=== PATIENT | male | born 1960 | race Caucasian/White ===

== ENCOUNTER 2018-08-18 10:52 | Observation (INO) | payer MEDICAID, SELFPAY ==
[2018-08-18] VITALS (10 sets, daily range): BP systolic 118–148; BP diastolic 51–91; PULSE 72–99; RESP 16–25; TEMP 36.3–37.5; O2SAT 95–100
--- NOTE | 2018-08-18 10:55 | DI.CT_ITS ---
SYMPTOMS/DIAGNOSIS: RIGHT LOWER QUADRANT PAIN, HERNIA, FEELS INCARCERATED, ? STRANGULATION CT OF THE ABDOMEN AND PELVIS: Comparison is made with November,. Images were performed from the lung bases through the ischial tuberosities after IV and oral contrast. There is a right inguinal hernia containing a loop of distal small bowel, which appears obstructing. The small bowel distal to the hernia is decompressed. More proximal loops are dilated. There is no pneumatosis. There are diverticula in the colon, but no evidence of diverticulitis. The appendix appears normal. The lung bases show dependent changes. The liver, spleen, adrenals and pancreas are unremarkable. There is thickening of the gallbladder wall, which appears unchanged when compared with the previous exam. There is no abnormal gallbladder distention or biliary dilatation. There are small bilateral renal cysts. The urinary bladder is unremarkable. The prostate is enlarged. IMPRESSION: Right inguinal hernia containing a loop of small bowel causing obstruction. There is evidence of a previous inguinal hernia repair.
[2018-08-18] MEDS: Lactated Ringers 1,000 ML 1000 ML IV (11:11)
[2018-08-18] MEDS: Ondansetron 4 MG/2 ML VIAL IVP (11:11)
[2018-08-18] MEDS: HYDROmorphone 2 MG/ML VIAL 1 MG IVP (11:11)
[2018-08-18 11:22] LABS: Abs Immature Grans 0.02 k/cumm (0.0-0.09); Absolute Eosinophil Count 0.04 k/cumm (0.0-0.7); Absolute Lymphocyte Count 0.81 k/cumm (1.2-3.4); Basophils % 0.2; Eosinophils % 0.3; HCT 45.3 % (40.0-50.0); HGB 15.4 g/dL (13.5-17.5); Immature Grans % 0.2; Lymphocytes % 6.1; Mean Corpuscular Hemoglobin 29.4 pg (27.0-33.0); Mean Corpuscular Volume 86.6 fL (80-95); Mean Platelet Volume 9.5 fL (8.0-11.0); Monocytes % 5.3; Neutrophils % 87.9; Platelet Count 286 x1000/uL (130-400); RBC 5.23 m/cumm (4.50-6.00); RBC Distribution Width 13.6 % (11.8-14.1); White Blood Cell Count 13.33 k/cumm (4.4-10.8)
[2018-08-18 11:25] LABS: Absolute Basophil Count 0.03 k/cumm (0.0-0.2); Absolute Monocyte Count 0.71 k/cumm (0.11-0.7); Absolute Neutrophil Count 11.72 k/cumm (1.2-6.7)
[2018-08-18 11:36] LABS: ALT 28 U/L (12-78); AST 27 U/L (15-37); Albumin 4.1 g/dL (3.4-5.0); Alkaline Phosphatase 81 U/L (46-116); Anion Gap 12.2 mmol/L (3-11); BUN 19 mg/dL (7-18); Bilirubin, Total 0.7 mg/dL (0.2-1.0); CO2 22.8 mmol/L (21.0-32.0); Calcium 8.9 mg/dL (8.5-10.1); Chloride 103 mmol/L (98-107); Glucose 136 mg/dL (70-100); Potassium 3.7 mmol/L (3.5-5.1); Sodium 138 mmol/L (136-145); Total Protein 7.8 g/dL (6.4-8.2)
[2018-08-18] MEDS: Omnipaque 350 MG/ML 100 ML BTL IJ (12:41)
--- NOTE | 2018-08-18 12:51 | ED.GENADUL_ITS ---
Discharge Plan Disposition Patient Disposition: [facility] INPATIENT Condition: Good Discharge Details Chief Complaint: Abd Prob Clinical Impression: Recurrent inguinal hernia of right side with obstruction Reason For Visit: INCARCERATED RECURRENT RIGHT INGUINAL HERNIA Admit Date/Time: 08/18/18 16:14 Admit Provider: John Pope Attending Provider: John Pope Primary Care Provider: None,None ED Provider: Demian Sanchez Discharge Instructions Activity:: see instructions Equipment/Supplies:: No Equipment Needed Diet:: Normal Diet Discharge Orders Discharge Orders: Discharge Order (Routine); Ordered 08/19/18 Ordered By: John Pope Discharge Data Discharge Date/Time-TO BE ENTERED AT DEPARTURE: 08/18/18 14:23 Medical Decision Making This is a pleasant 58-year-old male with past medical history of a right inguinal surgery with hernia repair with mesh. This was performed by Dr. Apodaca a few years ago. Patient states that today he was out chopping wood when he suddenly noticed a bulge and pain in his right groin where he had a previous surgery. Physical exam is concerning for an incarcerated hernia. We did get a CT scan to evaluate for strangulation. I did just get a call from the radiologist and there is concern for certainly an obstructed hernia where he had the surgical correction with mesh. We will contact surgery Dr. Apodaca for further evaluation. CT scan shows evidence of incarcerated hernia with concern for obstruction. Dr. Love mentions no other acute process on CT scan. Dr. Apodaca has come and evaluated the patient. He will bring the patient directly to the OR for open hernia reduction. I have extensively reviewed the treatment plan with the patient. I have addressed all patient concerns at this time. I have also discussed the plan with the admitting physician and they agree with the current assessment and plan and have agreed to assume responsibility for the patient. All parties demonstrate verbal understanding and agreement with our assessment and plan at this time. CT OF THE ABDOMEN AND PELVIS: Comparison is made with November,. Images were performed from the lung bases through the ischial tuberosities after IV and oral contrast. There is a right inguinal hernia containing a loop of distal small bowel, which appears obstructing. The small bowel distal to the hernia is decompressed. More proximal loops are dilated. There is no pneumatosis. There are diverticula in the colon, but no evidence of diverticulitis. The appendix appears normal. The lung bases show dependent changes. The liver, spleen, adrenals and pancreas are unremarkable. There is thickening of the gallbladder wall, which appears unchanged when compared with the previous exam. There is no abnormal gallbladder distention or biliary dilatation. There are small bilateral renal cysts. The urinary bladder is unremarkable. The prostate is enlarged. IMPRESSION: Right inguinal hernia containing a loop of small bowel causing obstruction. There is evidence of a previous inguinal hernia repair. HPI General Date/Time Provider Initiated Documentation: 08/18/18 10:55 . HPI Narrative: This is a pleasant 58-year-old male who presents today for evaluation of right groin pain. Patient has a history of a right-sided inguinal hernia repair with mesh by Dr. Apodaca greater than 2-3 years ago. Today he was out chopping wood and noticed some mild pain in that area. And then later today while doing less aggressive forms of activity he noted a sudden bulge in his right groin. It was painful, and he was unable to reduce it. He came to the ER for further evaluation after roughly 1 hour with the hernia being out. He denies any nausea, vomiting or diarrhea. He denies any chest pain, shortness of breath, numbness, tingling or weakness. He denies any dysuria, hematuria. He states that his symptoms feel similar to when he had his last hernia that was surgically repaired however he used to be able to push it and at this time he cannot. She denies any other modifying or relieving factors. He is presenting via EMS. Patient denies any pertinent family history, IV or illicit drug use. Related Data Home Medications Medication Instructions Recorded Confirmed acetaminophen [Tylenol] 650 mg PO Q4H PRN PRN #0 tab 08/19/18 ibuprofen 400 mg PO Q6H PRN PRN #0 tab 08/19/18 Previous Rx's Medication Instructions Recorded acetaminophen [Tylenol] 650 mg PO Q4H PRN PRN #0 tab 08/19/18 ibuprofen 400 mg PO Q6H PRN PRN #0 tab 08/19/18 Allergies Allergy/AdvReac Type Severity Reaction Status Date / Time No Known Allergies Allergy Unverified 08/18/18 11:17 General Stated Complaint: Abd Prob LENNOX: 3 Review of Systems Review of Systems All systems reviewed & are unremarkable except as noted in HPI and below PFSH Medical History Anxiety (Chronic) Surgical History History of inguinal hernia repair (Acute) Arthroplasty of knee Social History Smoking/Tobacco Use Status: Former Tobacco Use alcohol intake: never substance use type: marijuana Exam Narrative Exam Narrative: 1.Const: Well-nourished, Well-developed, appearing stated age 2.Eyes: PERRL, no conjunctival injection, and symmetrical lids. 3.ENT: Atraumatic external nose and ears. Moist MM. Neck: Symmetric, trachea midline, No thyromegaly. 4.CVS: +S1/S2, No murmurs or gallops. Peripheral pulses 2+ and equal in all extremities. Brisk capillary refill in all extremities. 5.RESP: Unlabored respiratory effort. Clear to auscultation bilaterally. No wheezes rales or rhonchi 6.GI: Soft, Nondistended, No hepatosplenomegaly. No guarding or rebound. Notable tenderness in the right groin, notable bulge that I cannot reduce. The bulge is firm, tender, and hard. No evidence of testicular tenderness, normal cremasteric reflex bilaterally. No penile tenderness. Bowel sounds are reduced. 7.MSK: Normocephalic/Atraumatic, Extremities w/o deformity or ttp No cyanosis or clubbing, Normal movement of all extremities 8.Skin: Warm, Dry. No rashes or lesions. 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 Sensation grossly intact, no focal neurologic deficits. 10.Psych: (AAO) x3. Appropriate mood and affect Course Vital Signs Temperature 37 C 08/18/18 10:50 Pulse 76 08/18/18 10:50 Respiratory Rate 16 08/18/18 10:50 Blood Pressure 124/87 08/18/18 10:50 Pulse Oximetry 98 08/18/18 10:50 Temperature 37 C 08/18/18 10:50 Temperature Source Temporal Artery Scan 08/18/18 10:50 Pulse 76 08/18/18 10:50 Respiratory Rate 16 08/18/18 10:50 Respiratory Effort 08/18/18 11:16 Blood Pressure 124/87 08/18/18 10:50 Blood Pressure Position Sitting 08/18/18 10:50 Pulse Oximetry 98 08/18/18 10:50 Oxygen Delivery Method Room Air 08/18/18 10:50 Oxygen Flow Rate 0 08/18/18 10:50 Pain Level 4 08/18/18 10:50 Lab/Test Results Lab/Test Results: Laboratory Tests Range/Units 08/18/18 08/18/18 11:15 11:15 WBC (4.4-10.8) k/cumm 13.33 H RBC (4.50-6.00) m/cumm 5.23 Hgb (13.5-17.5) g/dL 15.4 Hct (40.0-50.0) % 45.3 MCV (80-95) fL 86.6 MCH (27.0-33.0) pg 29.4 MCHC (32.0-36.0) g/dL 34.0 RDW (11.8-14.1) % 13.6 Plt Count (130-400) x1000/uL 286 MPV (8.0-11.0) fL 9.5 Immature Gran % 0.2 Neutrophils % 87.9 Lymphocytes % 6.1 Monocytes % 5.3 Eosinophils % 0.3 Basophils % 0.2 Absolute Neutrophils (1.2-6.7) k/cumm 11.72 H Absolute Lymphocytes (1.2-3.4) k/cumm 0.81 L Absolute Monocytes (0.11-0.7) k/cumm 0.71 H Absolute Eosinophils (0.0-0.7) k/cumm 0.04 Absolute Basophils (0.0-0.2) k/cumm 0.03 Sodium (136-145) mmol/L 138 Potassium (3.5-5.1) mmol/L 3.7 Chloride (98-107) mmol/L 103 Carbon Dioxide (21.0-32.0) mmol/L 22.8 Anion Gap (3-11) mmol/L 12.2 H BUN (7-18) mg/dL 19 H Creatinine (0.70-1.30) mg/dL 1.10 Estimated GFR/1.73 m2 (mL/min/1.73m2) >= 60.00 Glucose (70-100) mg/dL 136 H Calcium (8.5-10.1) mg/dL 8.9 Total Bilirubin (0.2-1.0) mg/dL 0.7 AST (15-37) U/L 27 ALT (12-78) U/L 28 Alkaline Phosphatase (46-116) U/L 81 Total Protein (6.4-8.2) g/dL 7.8 Albumin (3.4-5.0) g/dL 4.1
--- NOTE | 2018-08-18 14:25 | HPE_ITS ---
Date of service: 08/18/18 Time of Service: 14:22 Assessment and Plan (1) Recurrent inguinal hernia of right side with obstruction: Current visit: Yes Status: Acute Recommended open repair of recurrent right inguinal hernia repair. I discussed the risks of the procedure with Mr. Peña, and reviewed the procedure with him. I did discuss the possibility of bowel resection. All his questions were answered to his satisfaction. No promises or guarantees were made, order given. Consent was obtained to proceed with open right inguinal hernia repair. History of Present Illness Chief Complaint: Incarcerated Recurrent Right inguinal Hernia Narrative: 58-year-old gentleman presenting to the emergency room less than 24 hours of fairly sudden onset right lower quadrant pain with associated bulge. He was cutting wood this morning when onset of pain in the bulge. He has since developed associated nausea. He presented to the emergency room with pain subsequently found to have a slightly elevated white count and CT confirmed recurrent right inguinal hernia that is incarcerated. He was unable to reduce this at his home and it is not been able to reduce to the emergency room. Surgeries been consulted to evaluate. Review of Systems Review of Systems All systems reviewed & are unremarkable except as noted in HPI and below Constitutional Reports anorexia, Denies chills, Denies fatigue, Denies fever(s), Denies headache(s), Denies lethargy and Reports malaise Eyes Reports system reviewed and no additional complaints, except as docu and Denies loss of vision ENT Reports system reviewed and no additional complaints, except as docu, Denies vertigo, Denies dizziness and Denies headache(s) Cardiovascular Denies chest pain, Denies chest pain at rest, Denies irregular heart rhythm, Denies radiating jaw, neck or arm pain and Denies dyspnea on exertion Respiratory Denies cough, Denies pain with cough and Denies dyspnea on exertion Gastrointestinal Denies change in bowel habits and Denies heartburn Musculoskeletal Denies back pain, Denies myalgias, Denies joint swelling, Denies limited range of motion and Denies muscle weakness Neurologic Denies confusion, Denies vertigo, Denies dizziness, Denies headache(s), Denies focal weakness, Denies loss of vision and Denies seizure-like activity Psychiatric Denies abnormal sleep pattern, Reports anxiety, Denies confusion, Denies difficulty concentrating and Denies irritability Endocrine Denies fatigue Hematologic/Lymphatic Denies easy bleeding and Denies easy bruising [facility] Medical History Anxiety (Chronic) Surgical History Arthroplasty of knee Social History Smoking/Tobacco Use Status: Former Tobacco Use alcohol intake: never substance use type: marijuana Meds Allergies Allergy/AdvReac Type Severity Reaction Status Date / Time No Known Allergies Allergy Unverified 08/18/18 11:17 Exam Const General: cooperative, well developed, in distress mild and disheveled Nutritional Appearance: average body habitus and well nourished Orientation: alert [facility] Head: normal to inspection, normocephalic and atraumatic Ears: hearing grossly normal bilaterally General nose exam: external nose normal Face and sinus: normal facial exam Mouth: oral mucosae normal Eyes General: appearance normal, both eyes and all related structures Periorbital: periorbital findings normal Sclera: sclerae normal Pupils: PERRL EOM: EOM intact bilaterally Neck Neck: normal visual inspection Chest Chest: normal inspection of the chest Resp Effort & Inspection: normal respiratory effort and respiratory effort not decreased Auscultation: clear to auscultation bilaterally Cardio Jugular venous pressure: no JVD Rate: regular rate Heart Sounds: S1 normal and S2 normal GI Inspection: normal to inspection Palpation: soft, hernia indirect inguinal on the right, mass (Bulge in Right groin non reducible.) and tender in the RLQ; with no rebound tenderness Rectal Exam: deferred Skin General skin exam: no rashes or lesions noted Rashes: no rashes Neuro General: moves all extremities, no focal motor deficits and CN's II-XI intact bilaterally Extrem General: normal capillary refill and no clubbing, cyanosis or edema Psych Appearance: grossly normal Mental Status: mental status grossly normal Affect: normal affect Judgment: judgment good Results Imaging Abdomen CT scan report/results: image reviewed CT scan - pelvis: image reviewed Imaging Studies: CT:CT abdomen & pelvis w SYMPTOMS/DIAGNOSIS: RIGHT LOWER QUADRANT PAIN, HERNIA, FEELS INCARCERATED, ? STRANGULATION CT OF THE ABDOMEN AND PELVIS: Comparison is made with November,. Images were performed from the lung bases through the ischial tuberosities after IV and oral contrast. There is a right inguinal hernia containing a loop of distal small bowel, which appears obstructing. The small bowel distal to the hernia is decompressed. More proximal loops are dilated. There is no pneumatosis. There are diverticula in the colon, but no evidence of diverticulitis. The appendix appears normal. The lung bases show dependent changes. The liver, spleen, adrenals and pancreas are unremarkable. There is thickening of the gallbladder wall, which appears unchanged when compared with the previous exam. There is no abnormal gallb ladder distention or biliary dilatation. There are small bilateral renal cysts. The urinary bladder is unremarkable. The prostate is enlarged. IMPRESSION: Right inguinal hernia containing a loop of small bowel causing obstruction. There is evidence of a previous inguinal hernia repair. Labs : 08/18/18 11:15 08/18/18 11:15 Laboratory Results - last 24 hr 08/18/18 08/18/18 11:15 11:15 WBC 13.33 H RBC 5.23 Hgb 15.4 Hct 45.3 MCV 86.6 MCH 29.4 MCHC 34.0 RDW 13.6 Plt Count 286 MPV 9.5 Immature Gran % 0.2 Neutrophils % 87.9 Lymphocytes % 6.1 Monocytes % 5.3 Eosinophils % 0.3 Basophils % 0.2 Absolute Neutrophils 11.72 H Absolute Lymphocytes 0.81 L Absolute Monocytes 0.71 H Absolute Eosinophils 0.04 Absolute Basophils 0.03 Sodium 138 Potassium 3.7 Chloride 103 Carbon Dioxide 22.8 Anion Gap 12.2 H BUN 19 H Creatinine 1.10 Estimated GFR/1.73 m2 >= 60.00 Glucose 136 H Calcium 8.9 Total Bilirubin 0.7 AST 27 ALT 28 Alkaline Phosphatase 81 Total Protein 7.8 Albumin 4.1 Last Vital Signs Temp 37 C 08/18/18 10:50 Pulse 76 08/18/18 10:50 Resp 16 08/18/18 10:50 BP 124/87 08/18/18 10:50 Pulse Ox 98 08/18/18 10:50
[2018-08-18] MEDS: Lactated Ringers 1,000 ML 30 ML IV (14:29)
[2018-08-18] MEDS: Lidocaine 1% Multi-Dose 50 ML VIAL (14:54)
--- NOTE | 2018-08-18 16:22 | W.PM.OP ---
Date of service: 08/18/18 Time of Service: 14:30 Operative Note DATE OF PROCEDURE: 08/18/18 PRE-OP DIAGNOSIS: Recurrent right inguinal hernia with obstruction POST-OP DIAGNOSIS: other (Recurrent right indirect inguinal hernia with obstruction) PROCEDURE: Open repair recurrent right inguinal hernia with mesh SURGEON: John Pope INTERVENTIONAL TECH: Judy Heller ANESTHESIA: GETA (Mali Bai CRNA; ASA 2E Mallampati class II) and local (1% lidocaine with epinephrine and 0.25% Marcaine) ESTIMATED BLOOD LOSS: 25 PATHOLOGY: none sent COMPLICATIONS: None Patient was transported to: PACU Patient's condition: stable Implants: [employer] Anatomic Right Progrip Mesh Lot #[id number] Indications: 58-year-old male presented to the emergency room less than 24 hours of sudden onset right groin pain. Pain was associated with a right groin bulge that was firm, red, and nonreducible. He had had a right inguinal hernia repaired 7 years prior, and he had no issues since then, until recently started to feel discomfort with lifting heavy objects. Since his presentation to the emergency room started developing increasing pain and nausea but no vomiting. Workup in the emergency room subsequently confirmed incarcerated recurrent right inguinal hernia by CT, which confirmed physical findings. Surgery was contacted for intervention. Findings: Upon exploring the right inguinal canal and freeing up adhesions to the old mesh that had been placed, and indirect inguinal hernia was identified containing a small hernia sac which was subsequently reduced and in the floor the inguinal canal repaired with mesh creating a new internal ring. Procedure Description: The patient was brought to the operating room. A time-out was completed verifying correct patient , procedure, site , allergies, medications, positioning, implants, and fire risk, prior to beginning the procedure. General anesthesia was induced. The right groin was prepped with chloraprep, and draped in the standard sterile fashion. At induction the incarcerated hernia reduced without physical interventions. The pubic tubercle, and anterior superior iliac spine (ASIS) were marked. A skin incision was marked starting just laterally to the pubic tubercle in a linear oblique fashion toward the ASIS. A field block was produced by injecting local along the proposed skin incision. Additional local anesthesia was injected during the procedure under the external oblique aponeurosis, just medial to the ASIS, to block the ilioinguinal nerve. Addition local was injected as needed during the case. I began by incising the previously marked incision line with a scalpel. The incision was deepened though Corinne's and Camper's fascia with electocautery down until the aponeurosis of the external oblique was encountered. This was cleaned and the external ring exposed. Hemostasis was obtained in the wound with cautery. A stab incision was made in the midportion of the external oblique aponeurosis in the parallel to the fibers. Flaps of the external oblique were developed cephalad, and inferiorly. The cord was identified, gently dissected at the pubic tubercle, and encircled with a jenny drain, The cord was then explored, the vas deferens, and testicular vesicles were protected small indirect hernia sac was identified and reduced back into the abdomen. Adhesions to the mesh placed in the prior hernia repair were taken down with sharp and blunt dissection so that the appropriate fitch were exposed for placement of a new mesh to repair the floor the inguinal canal. The femoral canal was palpated and no hernia was identified. As the incarceration had reduced at the time of induction of anesthesia I did not visualize any bowel during the case. I then placed a mesh to re-enforce the floor of the inguinal canal, and create a new internal ring. The floor of the inguinal canal was cleaned medially over the pubic tubercle, cephalad over the conjoint tendon, laterally over the aponeurosis of the internal oblique, and inferiorly the inguinal ligament. A mesh was then laid in the floor of the canal with the mesh overlying the pubic tubercle medially, conjoint tendon cephalad, internal oblique aponeurosis laterally, and shelving edge of inguinal ligament inferiorly. The mesh was then inspected for apposition to the tissue, and pressed into place. The tip of a Debakey forceps easily passed through the new internal ring next the cord structures. The wound was then irrigated. Hemostasis again checked, and jenny drain removed. I closed the wound in layers, with 2-0 vicryl for the external oblique in a running fashion, 3-0 vicryl to approximate Corinne's fascia, and the skin was closed with 4-0 vicryl with a running subcuticular fashion. A dressing was applied. The count was reported correct times two. No apparent complications during the case. The patient was brought to the PACU in good condition.
[2018-08-18] MEDS: Albuterol/Ipratropium 3 ML UPD VIAL (16:25)
[2018-08-18] MEDS: Lactated Ringers 1,000 ML 125 ML IV (16:25)
--- NOTE | 2018-08-18 16:34 | ROE_ITS ---
Date of service: 08/18/18 Time of Service: 14:30 Operative Note DATE OF PROCEDURE: 08/18/18 PRE-OP DIAGNOSIS: Recurrent right inguinal hernia with obstruction POST-OP DIAGNOSIS: other (Recurrent right indirect inguinal hernia with obstruction) PROCEDURE: Open repair recurrent right inguinal hernia with mesh SURGEON: John Pope SUPERVISOR STAVE FINISHING: Judy Heller ANESTHESIA: GETA (Mali Bai CRNA; ASA 2E Mallampati class II) and local (1% lidocaine with epinephrine and 0.25% Marcaine) ESTIMATED BLOOD LOSS: 25 PATHOLOGY: none sent COMPLICATIONS: None Patient was transported to: PACU Patient's condition: stable Implants: [employer]ien Anatomic Right Progrip Mesh Lot #[id number] Indications: 58-year-old male presented to the emergency room less than 24 hours of sudden onset right groin pain. Pain was associated with a right groin bulge that was firm, red, and nonreducible. He had had a right inguinal hernia repaired 7 year s prior, and he had no issues since then, until recently started to feel discomfort with lifting heavy objects. Since his presentation to the emergency room started developing increasing pain and nausea but no vomiting. Workup in the emergency room subsequently confirmed incarcerated recurrent right inguinal hernia by CT, which confirmed physical findings. Surgery was contacted for intervention. Findings: Upon exploring the right inguinal canal and freeing up adhesions to the old mesh that had been placed, and indirect inguinal hernia was identified containing a small hernia sac which was subsequently reduced and in the floor the inguinal canal repaired with mesh creating a new internal ring. Procedure Description: The patient was brought to the operating room. A time-out was completed verifying correct patient , procedure, site , allergies, medications, positioning, implants, and fire risk, prior to beginning the procedure. General anesthesia was induced. The right groin was prepped with chloraprep, and draped in the standard sterile fashion. At induction the incarcerated hernia reduced without physical interventions. The pubic tubercle, and anterior superior iliac spine (ASIS) were marked. A skin incision was marked starting just laterally to the pubic tubercle in a linear oblique fashion toward the ASIS. A field block was produced by injecting local along the proposed skin incision. Additional local anesthesia was injected during the procedure under the external oblique aponeurosis, just medial to the ASIS, to block the ilioinguinal nerve. Addition local was injected as needed during the case. I began by incising the previously marked incision line with a scalpel. The incision was deepened though Corinne's and Camper's fascia with electocautery down until the aponeurosis of the external oblique was encountered. This was cleaned and the external ring exposed. Hemostasis was obtained in the wound with cautery. A stab incision was made in the midportion of the external oblique aponeurosis in the parallel to the fibers. Flaps of the external oblique were developed cephalad, and inferiorly. The cord was identified, gently dissected at the pubic tubercle, and encircled with a jenny drain, The cord was then explored, the vas deferens, and testicular vesicles were protected small indirect hernia sac was identified and reduced back into the abdomen. Adhesions to the mesh placed in the prior hernia repair were taken down with sharp and blunt dissection so that the appropriate fitch were exposed for placement of a new mesh to repair the floor the inguinal canal. The femoral canal was palpated and no hernia was identified. As the incarceration had reduced at the time of induction of anesthesia I did not visualize any bowel during the case. I then placed a mesh to re-enforce the floor of the inguinal canal, and create a new internal ring. The floor of the inguinal canal was cleaned medially over the pubic tubercle, cephalad over the conjoint tendon, laterally over the aponeurosis of the internal oblique, and inferiorly the inguinal ligament. A mesh was then laid in the floor of the canal with the mesh overlying the pubic tubercle medially, conjoint tendon cephalad, internal oblique aponeurosis laterally, and shelving edge of inguinal ligament inferiorly. The mesh was then inspected for apposition to the tissue, and pressed into place. The tip of a Debakey forceps easily passed through the new internal ring next the cord struct ures. The wound was then irrigated. Hemostasis again checked, and jenny drain removed. I closed the wound in layers, with 2-0 vicryl for the external oblique in a running fashion, 3-0 vicryl to approximate Corinne's fascia, and the skin was closed with 4-0 vicryl with a running subcuticular fashion. A dressing was applied. The count was reported correct times two. No apparent complications during the case. The patient was brought to the PACU in good condition.
[2018-08-18] MEDS: Pantoprazole 40 MG VIAL IVP (17:54)
[2018-08-18] MEDS: Normal Saline Flush 10 ML SYR IVP ×2 (17:54→22:48)
[2018-08-18] MEDS: ACETAMINOPHEN 1,000 MG/100 ML BTL 400 MG IVPB ×2 (17:55→23:45)
[2018-08-18] MEDS: Ketorolac 15 MG/ML VIAL IVP (22:47)
[2018-08-19 00:11] VITALS: BP 129/75; PULSE 64; RESP 18; TEMP 37; O2SAT 98
[2018-08-19] MEDS: Lactated Ringers 1,000 ML 125 ML IV (02:12)
[2018-08-19 03:35] VITALS: BP 108/68; PULSE 60; RESP 18; TEMP 36.8; O2SAT 98
[2018-08-19] MEDS: Ketorolac 15 MG/ML VIAL IVP (04:55)
[2018-08-19 07:30] VITALS: BP 120/80; PULSE 74; RESP 18; TEMP 37.1; O2SAT 98
--- NOTE | 2018-08-19 08:39 | PDOC.CMIN ---
- If Service Date Differs Date of service: 08/19/18 Time of Service: 08:39 Care Management Initial Assess REASON FOR HOSPITALIZATION:: Incarcerated Recurrent (R) inguinal hernia PAST MEDICAL HISTORY/PAST SURGICAL HISTORY:: Anxiety, Anthroplasty of knee PREVIOUS FUNCTIONAL STATUS/SOCIAL/FAMILY SUPPORTS:: Suzanne resides with his AURELIA Mark in [place] CURRENT FUNCTIONAL STATUS:: Currently suzanne is sitting up in his chair when CM attempts to meet with him. He is on the phone at the time of visit. ADVANCE DIRECTIVES:: None on file Has patient been provided with information about the portal?: Yes Did the patient sign up for the portal?: No CODE STATUS:: Full Code INSURANCE COVERAGE / FINANCIAL ISSUES:: Medicaid CURRENT HOME/COMMUNITY SERVICES/EQUIPMENT:: Currently Suzanne has no services or medical equipment in the community. PRIMARY CARE PHYSICIAN:: to be set up with Annie Toscano - Telephone provider POTENTIAL DISCHARGE NEEDS:: F/U appointment with Dr. Pope PATIENT/FAMILY EDUCATION NEEDS:: Review DC instructions, any limitations, and ongoing DC planning discussion. Discuss 'Ask Me Three' ANTICIPATED BARRIERS TO DISCHARGE:: None identified at this time. TRANSPORTATION:: Via private vehicle. PLAN:: Suzanne will return home with no anticipated services once medically cleared. He will f/U with Dr. Pope and plan of care as prescribed. Transport via private vehicle.
[2018-08-19] MEDS: ACETAMINOPHEN 1,000 MG/100 ML BTL 400 MG IVPB (08:46)
[2018-08-19 09:25] LABS: HCT 43.6 % (40.0-50.0); HGB 14.5 g/dL (13.5-17.5); Mean Corp. HGB Concentration 33.3 g/dL (32.0-36.0); Mean Corpuscular Hemoglobin 29.5 pg (27.0-33.0); Mean Corpuscular Volume 88.6 fL (80-95); Mean Platelet Volume 9.4 fL (8.0-11.0); Platelet Count 278 x1000/uL (130-400); RBC 4.92 m/cumm (4.50-6.00); RBC Distribution Width 14.2 % (11.8-14.1); White Blood Cell Count 10.42 k/cumm (4.4-10.8)
[2018-08-19 09:33] LABS: Anion Gap 11.8 mmol/L (3-11); BUN 12 mg/dL (7-18); CO2 25.2 mmol/L (21.0-32.0); CREATININE 1.22 mg/dL (0.70-1.30); Calcium 8.4 mg/dL (8.5-10.1); Chloride 102 mmol/L (98-107); Glucose 110 mg/dL (70-100); Potassium 3.4 mmol/L (3.5-5.1); Sodium 139 mmol/L (136-145)
--- NOTE | 2018-08-19 10:25 | DSE_ITS ---
Date of service: 08/19/18 Time of Service: 10:24 DS: Diagnosis Discharge Diagnosis (1) Recurrent inguinal hernia of right side with obstruction: Status: Acute Asessment and Plan: Open repair of recurrent right inguinal hernia, DATE OF PROCEDURE: 08/18/18 PRE-OP DIAGNOSIS: Recurrent right inguinal hernia with obstruction POST-OP DIAGNOSIS: other (Recurrent right indirect inguinal hernia with obstruction) PROCEDURE: Open repair recurrent right inguinal hernia with mesh SURGEON: John Pope LEAD ANDROID DEVELOPER: Judy Heller ANESTHESIA: GETA (Mali Bai CRNA; ASA 2E Mallampati class II) and local (1% lidocaine with epinephrine and 0.25% Marcaine) ESTIMATED BLOOD LOSS: 25 PATHOLOGY: none sent COMPLICATIONS: None Patient was transported to: PACU Patient's condition: stable Implants: [employer] Anatomic Right Progrip Mesh Lot #[id number] Indications: 58-year-old male presented to the emergency room less than 24 hours of sudden onset right groin pain. Pain was associated with a right groin bulge that was firm, red, and nonreducible. He had had a right inguinal hernia repaired 7 years prior, and he had no issues since then, until recently started to feel discomfort with lifting heavy objects. Since his presentation to the emergency room started developing increasing pain and nausea but no vomiting. Workup in the emergency room subsequently confirmed incarcerated recurrent right inguinal hernia by CT, which confirmed physical findings. Surgery was contacted for intervention. Findings: Upon exploring the right inguinal canal and freeing up adhesions to the old mesh that had been placed, and indirect inguinal hernia was identified containing a small hernia sac which was subsequently reduced and in the floor the inguinal canal repaired with mesh creating a new internal ring. Procedure Description: The patient was brought to the operating room. A time-out was completed verifying correct patient , procedure, site , allergies, medications, positioning, implants, and fire risk, prior to beginning the procedure. General anesthesia was induced. The right groin was prepped with chloraprep, and draped in the standard sterile fashion. At induction the incarcerated hernia reduced without physical interventions. The pubic tubercle, and anterior superior iliac spine (ASIS) were marked. A skin incision was marked starting just laterally to the pubic tubercle in a linear oblique fashion toward the ASIS. A field block was produced by injecting local along the proposed skin incision. Additional local anesthesia was injected during the procedure under the external oblique aponeurosis, just medial to the ASIS, to block the ilioinguinal nerve. Addition local was injected as needed during the case. I began by incising the previously marked incision line with a scalpel. The incision was deepened though Corinne's and Camper's fascia with electocautery down until the aponeurosis of the external oblique was encountered. This was cleaned and the external ring exposed. Hemostasis was obtained in the wound with cautery. A stab incision was made in the midportion of the external oblique aponeurosis in the parallel to the fibers. Flaps of the external oblique were developed cephalad, and inferiorly. The cord was identified, gently dissected at the pubic tubercle, and encircled with a jenny drain, The cord was then explored, the vas deferens, and testicular vesicles were protected small tiffanie rect hernia sac was identified and reduced back into the abdomen. Adhesions to the mesh placed in the prior hernia repair were taken down with sharp and blunt dissection so that the appropriate fitch were exposed for placement of a new mesh to repair the floor the inguinal canal. The femoral canal was palpated and no hernia was identified. As the incarceration had reduced at the time of induction of anesthesia I did not visualize any bowel during the case. I then placed a mesh to re-enforce the floor of the inguinal canal, and create a new internal ring. The floor of the inguinal canal was cleaned medially over the pubic tubercle, cephalad over the conjoint tendon, laterally over the aponeurosis of the internal oblique, and inferiorly the inguinal ligament. A mesh was then laid in the floor of the canal with the mesh overlying the pubic tubercle medially, conjoint tendon cephalad, internal oblique aponeurosis laterally, and shelving edge of inguinal ligament inferiorly. The mesh was then inspected for apposition to the tissue, and pressed into place. The tip of a Debakey forceps easily passed through the new internal ring next the cord structures. The wound was then irrigated. Hemostasis again checked, and jenny drain removed. I closed the wound in layers, with 2-0 vicryl for the external oblique in a running fashion, 3-0 vicryl to approximate Corinne's fascia, and the skin was closed with 4-0 vicryl with a running subcuticular fashion. A dressing was applied. The count was reported correct times two. No apparent complications during the case. The patient was brought to the PACU in good condition. Discharge Plan Disposition Patient Disposition: HOME Condition: Good Discharge Details Reason For Visit: INCARCERATED RECURRENT RIGHT INGUINAL HERNIA Admit Date/Time: 08/18/18 16:14 Admit Provider: John Pope Attending Provider: John Pope Primary Care Provider: None,None Hospital Course Hospital Course: Procedures: Open right inguinal hernia repair with mesh HPI: Incarcerated Recurrent Right inguinal Hernia Narrative: 58-year-old gentleman presenting to the emergency room less than 24 hours of fairly sudden onset right lower quadrant pain with associated bulge. He was cutting wood this morning when onset of pain in the bulge. He has since developed associated nausea. He presented to the emergency room with pain subsequently found to have a slightly elevated white count and CT confirmed recurrent right inguinal hernia that is incarcerated. He was unable to reduce this at his home and it is not been able to reduce to the emergency room. Surgeries was consulted to evaluate and recommended open repair of right inguinal hernia. Hospital Course: Patient underwent open right inguinal hernia repair without complications (see operative report for full details). His post-operative course was unremarkable. He was monitored overnight. He had no fevers, no n/v, minimal to no pain post- operatively, ambulating without difficulty. He is passing flatus and haing bowel movements postoperatively. He toleratied diet advancement without complications Post-op day one afebriile, tolerating diet, ambulating at base line, pain controlled with oral analgesia, he was discharged home. Home Meds and New Rx's Prescriptions: New acetaminophen [Tylenol] 325 mg Tablet 650 mg PO Q4H PRN PRNQty: 0 RF: 0 ibuprofen 400 mg Tablet 400 mg PO Q6H PRN PRNQty: 0 RF: 0 Discharge Instructions Instructions: Inguinal Hernia Repair (DC) Additional Instructions: Dr. John Pope Post-Operative Discharge Instructions 1. Because there will be medication in your system for the next 24 hours, you may feel a little sleepy. Your coordination will be affected. Therefore: * Do not drive or operate dangerous equipment for 24 hours. * Do not drink alcohol beverages for 24 hours (not even beer). * Plan to go home and rest for the day. Restrictions: * Do not lift, push, or pull, over 20lbs for 6 weeks. * No strenuous bending or twisting for 6 weeks, if it hurts stop. * No baths, you can shower. Let warm soapy water run over wound, then pat wound dry. Activity: * The day of surgery spend most of the day resting in a comfortable bed or recliner. 2-3 times during the day get up and walk around the house. * The day after surgery, or after your discharge, walk at least 3 times a day and spend increasing amounts of time walking and sitting up. If you are tired rest, but keep moving as able. * Continue Incentive Spirometry at home if you were performing this therapy in the hospital. Diet: * Resume home diet as tolerated. * Start with a light diet, your appetite will improve with time. * Drink at least 4-6 glasses of water per day to keep hydrated. Wound Care: * Skin gluie will wear off in a week or two. * You may cover the wound with a dry sterile dressing to keep clothing from rubbing against the wound. Continue all your regular medications unless directed otherwise. Call the office or the Hospital Workers Compensation Claims Analyst , If you have: * Pain not controlled with pain medication. * Nausea and vomiting. * Temperature greater than 101 degrees Fahrenheit. * Drainage from your wound that soaks through your dressing. *No more than 4000 milligrams of Tylenol in 24 hours. Narcotic pain medication can be constipating, if you have not had a bowel movement within 3 days use a laxative, I recommend Milk of Magnesia (MOM) 1oz. every 6 hrs until you have a bowel movement. I understand the above instructions and have no questions. Signature of Patient or Responsible Adult Escort Date/Time Name of Responsible Adult Escort Signature of Nurse Date/Time Revised 12/11/10 Stand Alone Forms: Nursing Discharge Form Referrals: John Pope DO [ [facility] STAFF PHYSICIAN] - 09/01/18 10:15 am (Follow up after repair of recurrent right inguinal hernia.) Activity:: see instructions Equipment/Supplies:: No Equipment Needed Diet:: Normal Diet Discharge Orders Discharge Orders: Discharge Order (Routine); Ordered 08/19/18 Ordered By: John Ppoe DS: Summary Status at Discharge Functional status at discharge: independent ambulation Overall status at discharge: patient is progressing back to baseline Exam Const General: cooperative, healthy appearing, well developed and disheveled Nutritional Appearance: average body habitus Orientation: alert, awake and oriented x3 HENMT Head: normal to inspection, normocephalic and atraumatic Ears: hearing grossly normal bilaterally General nose exam: external nose normal Face and sinus: normal facial exam Mouth: oral mucosae normal Throat: posterior oropharynx normal Eyes General: appearance normal, both eyes and all related structures Periorbital: periorbital findings normal Eyelids: eyelids normal Conjunctivae: conjunctivae normal Sclera: scleral abnormality right hemorrhage Neck Neck: normal visual inspection, full ROM, trachea midline and supple Chest Chest: normal inspection of the chest Resp Effort & Inspection: normal respiratory effort and able to speak in complete sentences Auscultation: clear to auscultation bilaterally Cardio Jugular venous pressure: no JVD Rate: regular rate Rhythm: regular rhythm Heart Sounds: S1 normal and S2 normal GI Inspection: incision (intact, with small amout of ecchymosis around incision,) Palpation: soft, no guarding and tender (over incision as appropriate) Rectal Exam: deferred DS: Data Vitals/I&O Vitals and I&O: Vital Signs Temperature 36.8 C 08/19/18 03:35 Temperature Source Skin 08/19/18 03:35 Pulse 60 08/19/18 03:35 Pulse Rhythm Regular 08/18/18 23:55 Respiratory Rate 18 08/19/18 03:35 Respiratory Effort Non-Labored 08/18/18 23:55 Respiratory Depth Normal 08/18/18 23:55 Respiratory Pattern Normal 08/18/18 23:55 Blood Pressure 108/68 08/19/18 03:35 Blood Pressure Position Sitting 08/18/18 10:50 Pulse Oximetry 98 08/19/18 03:35 Respiratory End-tidal CO2 34 08/18/18 17:00 Oxygen Delivery Method Room Air 08/19/18 03:35 Oxygen Flow Rate 0 08/19/18 03:35 Pain Level 0 08/19/18 03:35 Comment 08/19/18 03:35 Intake & Output 08/18/18 08/19/18 08/19/18 18:59 06:59 18:59 Intake Total 2857.5 / 3770.0 912.5 / 3770.0 Output Total 50 / 1200 1150 / 1200 Balance 2807.5 / 2570.0 -237.5 / 2570.0 Weight 81.647 kg Intake: IV 2307.5 / 3220.0 912.5 / 3220.0 Oral 550 / 550 Output: Urine 25 / 1175 1150 / 1175 Estimated Blood Loss 25 / 25 Other: Urine Color Yellow Yellow Urine Appearance Clear Clear Urine Odor Normal Emesis Description None Voiding Methods Urinal Labs on day of discharge: Labs from last 24 hours 08/19/18 08/19/18 08/18/18 09:10 09:10 11:15 WBC 10.42 13.33 H RBC 4.92 5.23 Hgb 14.5 15.4 Hct 43.6 45.3 MCV 88.6 86.6 MCH 29.5 29.4 MCHC 33.3 34.0 RDW 14.2 H 13.6 Plt Count 278 286 MPV 9.4 9.5 Immature Gran % 0.2 Neutrophils % 87.9 Lymphocytes % 6.1 Monocytes % 5.3 Eosinophils % 0.3 Basophils % 0.2 Absolute Neutrophils 11.72 H Absolute Lymphocytes 0.81 L Absolute Monocytes 0.71 H Absolute Eosinophils 0.04 Absolute Basophils 0.03 Sodium 139 Potassium 3.4 L Chloride 102 Carbon Dioxide 25.2 Anion Gap 11.8 H BUN 12 D Creatinine 1.22 Estimated GFR/1.73 m2 >= 60.00 Glucose 110 H Calcium 8.4 L Total Bilirubin AST ALT Alkaline Phosphatase Total Protein Albumin 08/18/18 11:15 WBC RBC Hgb Hct MCV MCH MCHC RDW Plt Count MPV Immature Gran % Neutrophils % Lymphocytes % Monocytes % Eosinophils % Basophils % Absolute Neutrophils Absolute Lymphocytes Absolute Monocytes Absolute Eosinophils Absolute Basophils Sodium 138 Potassium 3.7 Chloride 103 Carbon Dioxide 22.8 Anion Gap 12.2 H BUN 19 H Creatinine 1.10 Estimated GFR/1.73 m2 >= 60.00 Glucose 136 H Calcium 8.9 Total Bilirubin 0.7 AST 27 ALT 28 Alkaline Phosphatase 81 Total Protein 7.8 Albumin 4.1 PFSH Medical History Anxiety (Chronic) Surgical History History of inguinal hernia repair (Acute) Arthroplasty of knee Social History Smoking/Tobacco Use Status: Former Tobacco Use alcohol intake: never substance use type: marijuana
--- NOTE | 2018-08-19 13:48 | CHAPLAIN ---
Gera began speaking as soon as I walked in, before I explained who I was. 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 He is concerned about his brother's behavior and also worried about his mom's health issues, he said. He plans to be going home this afternoon as soon as he's discharged.
--- NOTE | 2018-08-19 15:21 | PDOC.CMDIS ---
- If Service Date Differs Date of service: 08/19/18 Time of Service: 15:21 LACE Index Scoring Tool - Questions: Length of Stay (in days): 2 Acuity (Admit via E.D.?): Yes E.D. Visits: 2 - Answers: Total Score: 7 Risk of Readmission: Low Risk Care Management Discharge Reason for Hospitalization: Incarcerated Recurrent (R) inguinal hernia Discharge Plan: Agustin to return home today with no services. He will F/u with PCP and plan of care as prescribed. Patient/Family Education Needs: Review DC instructions, any limitations and discuss 'Ask Me THree'
== END 2018-08-19 14:20 | disposition home or self-care (01) ==
LOC: ER 12:33 → MS 22:16
PROVIDERS: Admitting Provider Surgery; Emergency Provider Student in an Organized Health Care Education/Training Program; Visit Provider Surgery
PROC: 0YU50JZ Supplement Right Inguinal Region with Synthetic Substitute, Open Approach (ICD-10-PCS; CPT 49521; principal; 2018-08-18 13:15)
DX: K40.31 Unilateral inguinal hernia, with obstruction, without gangrene, recurrent (principal)
CPT/HCPCS: 49521; 36415; 80048; 80053; 85027; 96361; 96374; 96375; 99285; NC; 74177; 85025; C1781; G0378; J0131; J0690; J1100; J1885; J2250; J2405; J3490; J7620

== ENCOUNTER 2021-04-08 21:38 | Emergency (ER) | payer MEDICAID, SELFPAY ==
[2021-04-08 21:41] VITALS: BP 156/90; PULSE 95; RESP 18; TEMP 36.7; O2SAT 97
[2021-04-08 21:45] VITALS: RESP 18
--- NOTE | 2021-04-08 22:00 | DI.CT_ITS ---
Exam(s) CT PELVIC WO EXAM: CT PELVIC WO CLINICAL HISTORY: Right swollen testicle, R/O hernia, Torsion. TECHNIQUE: Imaging Protocol: Axial computed tomography images with coronal and sagittal reformatted images were created and reviewed CONTRAST MATERIAL: Intravenous: none Oral: None FINDING: PELVIS: OSSEOUS: No pelvic nor hip fractures evident.No lytic osseous lesions evident. Small benign bone isl and noted on the sacral side of the left SI joint.There is some sclerosis seen on the iliac side of b oth sacroiliac joints, possibly indicating element of sacroiliitis. There is no ankylosis of the SI joints. ANTERIOR ABDOMINAL WALL/GI:There has been interval repair of right inguinal hernia without evidence o f recurrence of right inguinal hernia on today's study. However, there is some fluid along the right spermatic cord as well as the right hydrocele noted.There is a new left inguinal hernia noted contai brii fat and no bowel loops. No evidence of appendicitis.There is sigmoid diverticuli. No evidence of acute diverticulitis.No free fluid in the pelvis. LYMPH NODES: There is no intrapelvic nor inguinal adenopathy. URINARY BLADDER: No calculi nor obvious masses evident REPRODUCTIVE: Prostate not enlarged. Seminal vesicles unremarkable.. IMPRESSION: 1. Compared to the prior CT scan of 08/18/2018 there has been repair of the right inguinal hernia. N o hernia recurrence on the right side but there is a right-sided hydrocele now evident. 2. There is a fat containing left inguinal hernia now evident. 3. Sigmoid diverticulosis without evidence of acute diverticulitis. 4. Osseous findings as above. RADIATION DOSE DELIVERED: 543.37mGy.cm Total DLP DATA REPOSITORY: All CT scans at this facility are submitted to the National Radiology Data Registry (NRDR) Dose Index Registry (DIR) with the [employer] (ACR). RADIATION OPTIMIZATION: All CT scans at this facility use at least one of these dose optimization te chniques: automated exposure control; mA and/or kV adjustment per patient size (includes targeted exa ms where dose is matched to clinical indication); or iterative reconstruction.
--- NOTE | 2021-04-08 22:08 | ED.GENADUL_ITS ---
Discharge Plan Disposition Patient Disposition: HOME Condition: Stable Discharge Details Clinical Impression: Right hydrocele Primary Care Provider: Debra Travis ED Provider: Zenobia Rodriguez Discharge Instructions Instructions: Hydrocele (ED) Additional Instructions: Wear formfitting underwear. Usually the fluid will reabsorb. If the swelling gets worse or you have pain please follow-up with primary care provider and/or urology. Follow up with primary care provider in 3-5 days. Return to ED sooner if any worsening or concerns. Increase oral fluids. Please take Tylenol or Ibuprofen with food every 4-6 hours as needed for pain and swelling. Referrals: Hakan Redman MD [ [facility] STAFF PHYSICIAN] - 2 weeks Debra Travis MD [Primary Care Provider] - Medical Decision Making 60-year-old male presents to the ER with chief complaint of right testicle swelling and tenderness last 3 days. He denies any difficulty urinating or trauma. He does have a past medical history of a right inguinal hernia repair. On exam his right testicle is erythemic and swollen mildly tender with palpation. CT pelvis ordered and UA with GC FINDINGS: Stomach and bowel: Visualized small bowel and colon are unremarkable. Appendix: No evidence of appendicitis. Intraperitoneal space: Unremarkable. No free air. No significant fluid collection. Lymph nodes: Unremarkable. No enlarged lymph nodes. Urinary bladder: Decompressed. Reproductive: Small to moderate right hydrocele and fluid along the right spermatic cord. Bones/joints: Unremarkable. No acute fracture. No dislocation. Soft tissues: New small to moderate left inguinal hernia containing fat. Interval resolution of direct right inguinal hernia. No evidence of recurrence right inguinal hernia. IMPRESSION: 1. Interval repair of direct right inguinal hernia. No evidence of recurrence right inguinal hernia. 2. Small to moderate right hydrocele and fluid along the right spermatic cord. 3. New small to moderate left inguinal hernia containing fat. Thank you for allowing us to participate in the care of your patient. Dictated and Authenticated by: Lauri Holman MD Discussed CT results with patient who verbalized understanding discussed home care and follow-up with PCP and/or urology if any worsening. Patient verbalized understanding is in no acute distress alert and oriented. HPI General Mode of arrival: ambulatory . Date/Time Provider Initiated Documentation: 04/08/21 21:41 . Limitations to Documentation: no limitations . Information obtained by: patient . HPI Narrative: 60-year-old male presents to the ER with chief complaint of right testicle swelling and tenderness last 3 days. He denies any difficulty urinating or trauma. He does have a past medical history of a right inguinal hernia repair. On exam his right testicle is erythemic and swollen mildly tender with palpation. Related Data Allergies Allergy/AdvReac Type Severity Reaction Status Date / Time No Known Allergies Allergy Verified 04/08/21 22:35 General Stated Complaint: GenMedical LENNOX: 3 Review of Systems All systems reviewed & are unremarkable except as noted in HPI and below Gastrointestinal Gastrointestinal: Denies abdominal pain Genitourinary Genitourinary: Denies difficulty urinating, Denies genital pain, Denies dysuria, Denies flank pain, Denies penile discharge, Reports scrotal swelling (Right side) and Reports urinary frequency [facility] Medical History (Updated 04/08/21 @ 22:50 by Zenobia Rodriguez) Anxiety Surgical History Arthroplasty of knee left; medial meniscus tear History of inguinal hernia repair Right: 08/18/2018, 2010 Social History Smoking/Tobacco Use Status: Former Tobacco Use Smoking risk assessment performed?: Yes Alcohol Intake: never Drug use: Occasionally Substance use type: marijuana Do you feel safe at home: Yes Do you feel safe in your relationship?: Yes Exam Narrative Exam Narrative: Constitutional: Alert and oriented x3. Appears stated age. Normal body habitus. Head: Normocephalic, no trauma. Eyes: Pupils PERRLA, Red reflex noted, EOM's intact. Eyelids symmetrical without lesions, discharge, or swelling. ENT: Bilateral TM's WNL, External ear normal to inspection, no mastoid TTP, swelling, or erythema, Nasal turbinates WNL, no nasal discharge. Normal dentition, Posterior pharynx WNL, no exudate. Chest: RRR, Normal S1, S2, distal pulses intact. Resp: Lungs clear to auscultation bilaterally, no wheezes, rales, or rhonchi. Abdomen: Soft, nontender with palpation. : No penile discharge, right scrotum is erythemic and swollen. Musculoskeletal: Normal gait, 5/5 strength to all four extremities. Skin: No suspicious rashes or lesions. Capillary refill less than 2 sec. Neurologic: Cranial nerves II-XII intact. Alert and oriented x 3. DTR's intact. Hematologic/Lymphatic: No ecchymosis, no lymphadenopathy. Course Vital Signs Vital signs: Vital Signs Temperature 36.7 C 04/08/21 21:41 Pulse 95 H 04/08/21 21:41 Respiratory Rate 18 04/08/21 21:41 Blood Pressure 156/90 H 04/08/21 21:41 Pulse Oximetry 97 04/08/21 21:41 Temperature 36.7 C 04/08/21 21:41 Temperature Source Skin 04/08/21 21:41 Pulse 95 H 04/08/21 21:41 Respiratory Rate 18 04/08/21 21:45 Respiratory Effort 04/08/21 21:45 Respiratory Depth Normal 04/08/21 21:45 Respiratory Pattern Normal 04/08/21 21:45 Blood Pressure 156/90 H 04/08/21 21:41 Blood Pressure Position Sitting 04/08/21 21:41 Pulse Oximetry 97 04/08/21 21:41 Oxygen Delivery Method Room Air 04/08/21 21:41 Oxygen Flow Rate 0 04/08/21 21:41
[2021-04-08 22:31] LABS: Bilirubin Negative (Negative); Blood Trace-intact (Negative); Clarity Clear (Clear); Glucose Negative (Negative); Ketones Negative (Negative); Leukocyte Esterase Negative (Negative); Nitrite Negative (Negative); Specific Gravity 1.025 (1.005-1.025); Urobilinogen 0.2 EU/dL (Up TO 0.2)
--- NOTE | 2021-04-08 22:44 | DI.VRAD_ITS ---
PROCEDURE INFORMATION: Exam: CT Pelvis Without Contrast Exam date and time: 04/08/2021 10:08 PM Age: 60 years old Clinical indication: Other: Swollen RT testicle, R/O hernia TECHNIQUE: Imaging protocol: Computed tomography images of the pelvis without contrast. COMPARISON: CT Abdomen^ROUTINE ABDOMEN PELVIS WITH CONTRAST (Adult) 08/18/2018 12:29 PM FINDINGS: Stomach and bowel: Visualized small bowel and colon are unremarkable. Appendix: No evidence of appendicitis. Intraperitoneal space: Unremarkable. No free air. No significant fluid collection. Lymph nodes: Unremarkable. No enlarged lymph nodes. Urinary bladder: Decompressed. Reproductive: Small to moderate right hydrocele and fluid along the right spermatic cord. Bones/joints: Unremarkable. No acute fracture. No dislocation. Soft tissues: New small to moderate left inguinal hernia containing fat. Interval resolution of direct right inguinal hernia. No evidence of recurrence right inguinal hernia. IMPRESSION: 1. Interval repair of direct right inguinal hernia. No evidence of recurrence right inguinal hernia. 2. Small to moderate right hydrocele and fluid along the right spermatic cord. 3. New small to moderate left inguinal hernia containing fat. Dictated and Authenticated by: Lauri Holman MD. Ordering:LUDWIG Fregoso MD
[2021-04-08 22:49] LABS: Bacteria Rare HPF (Negative); Casts Negative LPF (Negative); Crystals Negative HPF (Negative); Epithelial Cells Rare HPF (Negative); Mucus Negative (Negative); Other Cells Rare Yeast (Negative); RBC 0-2 HPF (0-2)
[2021-04-08 22:50] LABS: C & S Indicated? Yes
[2021-04-10 15:01] LABS: Chlamydia Result Negative (Negative); GC Result Negative (Negative)
== END 2021-04-08 23:15 | disposition home or self-care (01) ==
PROVIDERS: Emergency Provider Registered Nurse Emergency; PCP Family Medicine
DX: N43.3 Hydrocele, unspecified (principal)
CPT/HCPCS: 87491; 87591; 99284; 72192; 81003; 81015; 87086; 99283

== ENCOUNTER 2022-07-29 18:31 | Emergency (ER) | payer MEDICAID, SELFPAY ==
[2022-07-29 18:33] VITALS: BP 154/88; PULSE 104; RESP 18; TEMP 36.9; O2SAT 96
[2022-07-29] MEDS: Tetracaine 0.5% 4 ML BTL OP (18:57)
[2022-07-29] MEDS: Fluorescein STRIPS 100/BOX 1 MG OP (18:58)
[2022-07-29] MEDS: Balanced Salt Solution 15 ML BTL OP (18:58)
--- NOTE | 2022-07-29 18:58 | ED.GENADUL_ITS ---
Discharge Plan Disposition Patient Disposition: Home Condition: Stable Discharge Details Chief Complaint: EyeProblem Clinical Impression: Left eye injury, Corneal abrasion Primary Care Provider: Debra Travis ED Provider: Mehul Ansari Home Meds and New Rx's Prescriptions: No Action No Known Home Meds Discharge Instructions Instructions: Corneal Abrasion (ED) Additional Instructions: follow up with [facility] use the erythromycin three times a day for five days or until the medicine is gone if you feel more ill, have worsening pain or changes in vision return to the emergency department Medical Decision Making 62 yo male with hx of anxiety and hld and comes in with left eye pain. He was using a chainsaw cutting wood and he thinks a branch swung up and hit his left eye. Denies falls or other trauma. he denies changes in his vision, states he has cataracts he is going to have surgically fixed and his vision is unchanged. He has no preiorbital swelling, eomi, perrl. Right eye appears normal. Left eye inferior portion has what appears to be a subconjunctival hemorrhage, pupil is normal round shape. He has no visible foreign body on intial exam, will place tetracaine and perform flourescein exam. He states the pain is 2/10 and a mild ache pt states pain gone with tetracaine. He has no foreign body even under the eyelids, does have small 2mm corneal abrasion at the 3 oclock position over the conjunctiva, no evidence of globe rupture. He is stable for d/c, advised to f/u with Kayleee who he is already seeing for his cataracts, return precautions given Differential Diagnosis Differential Diagnosis: corneal abrasion, foreign body, subconjunctival hemorrhage Sign Out No HPI General Mode of arrival: ambulatory . Date/Time Provider Initiated Documentation: 07/29/22 18:39 . Limitations to Documentation: no limitations . Information obtained by: patient . History of Present Illness 62 year old M presents to the emergency department with the chief complaint of left eye pain, described as moderate, Quality is described as aching, and is localized to the eyes. Patient reports no radiation. Patient started experiencing this hour(s) (1) and it has been constant. No relieving factors improve symptom(s), No exacerbating factors reported . Patient notes no other symptoms.. Patient did receive the following treatments prior to arrival, none Related Data Home Medications Medication Instructions Recorded Confirmed Unknown [No Known Home Meds] 04/13/21 04/13/21 Allergies Allergy/AdvReac Type Severity Reaction Status Date / Time No Known Allergies Allergy Verified 04/13/21 15:06 General Stated Complaint: EyeProblem LENNOX: 4 Review of Systems All systems reviewed & are unremarkable except as noted in HPI and below Constitutional Constitutional: Denies chills, Denies fever(s) and Denies weakness Eyes Eyes: Denies loss of vision Cardiovascular Cardiovascular: Denies chest pain and Denies dyspnea Respiratory Respiratory: Denies cough and Denies dyspnea Gastrointestinal Gastrointestinal: Denies abdominal pain, Denies nausea and Denies vomiting Neurologic Neurologic: Denies loss of vision and Denies weakness PFSH All Active Problems (Updated 07/29/22 @ 19:14 by Mehul Ansari MD) Left eye injury (Acute) Corneal abrasion (Acute) Right hydrocele (Acute) Muscle spasms of neck (Acute) TMJ arthralgia (Acute) History of arthroscopy of knee (Acute) Acute medial meniscus tear (Acute) left Anxiety (Acute) ? 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) Recurrent inguinal hernia of right side with obstruction (Acute) Medical History (Updated 07/29/22 @ 19:14 by Mehul Ansari MD) Anxiety Surgical History Arthroplasty of knee left; medial meniscus tear History of inguinal hernia repair Right: 08/18/20182010 Social History Smoking/Tobacco Use Status: Former Tobacco Use Smoking risk assessment performed?: Yes Alcohol Intake: never Drug use: Occasionally Substance use type: marijuana Do you feel safe at home: Yes Do you feel safe in your relationship?: Yes Exam Const General: no acute distress Orientation: alert HENMT Head: normal to inspection Ears: external ears normal General nose exam: external nose normal Mouth: moist mucous membranes Eyes Eyelids: eyelids normal Pupils: PERRL EOM: EOM intact bilaterally Neck Neck: normal visual inspection Resp Effort & Inspection: normal respiratory effort and able to speak in complete sentences Cardio Rate: regular rate Skin General skin exam: no rashes or lesions noted Neuro General: patient alert and patient oriented x3 Extrem General: normal to inspection Psych Mental Status: mental status grossly normal Course Vital Signs Vital signs: Vital Signs Temperature 36.9 C 07/29/22 18:33 Pulse 104 H 07/29/22 18:33 Respiratory Rate 18 07/29/22 18:33 Blood Pressure 154/88 H 07/29/22 18:33 Pulse Oximetry 96 07/29/22 18:33 Temperature 36.9 C 07/29/22 18:33 Temperature Source Temporal Artery Scan 07/29/22 18:33 Pulse 104 H 07/29/22 18:33 Respiratory Rate 18 07/29/22 18:33 Respiratory Effort Non-Labored 07/29/22 18:36 Blood Pressure 154/88 H 07/29/22 18:33 Blood Pressure Position Sitting 07/29/22 18:33 Pulse Oximetry 96 07/29/22 18:33 Oxygen Delivery Method Room Air 07/29/22 18:33 Oxygen Flow Rate 0 07/29/22 18:33
[2022-07-29] MEDS: Erythromycin Ophth Oint 3.5 GM TUBE OP (19:13)
[2022-07-29 19:23] VITALS: PULSE 75; RESP 16; O2SAT 99
== END 2022-07-29 19:26 | disposition home or self-care (01) ==
PROVIDERS: Emergency Provider Emergency Medicine; PCP Family Medicine
DX: S05.02XA Injury of conjunctiva and corneal abrasion without foreign body, left eye, initial encounter (principal); E78.5 Hyperlipidemia, unspecified; Z23 Encounter for immunization; W22.8XXA Striking against or struck by other objects, initial encounter; Y93.89 Activity, other specified; Y99.8 Other external cause status
CPT/HCPCS: 90471; 99283; 99284

== ENCOUNTER 2022-10-16 15:45 | Outpatient (CLI) | payer MEDICAID, SELFPAY ==
[2022-10-16 15:38] LABS: Abs Immature Grans 0.03 10^3/uL (0.0-0.06); Absolute Basophil Count 0.05 10^3/uL (0.0-0.2); Absolute Eosinophil Count 0.22 10^3/uL (0.0-0.7); Absolute Lymphocyte Count 1.83 10^3/uL (1.2-3.4); Absolute Monocyte Count 0.83 10^3/uL (0.1-0.8); Absolute Neutrophil Count 5.71 10^3/uL (1.2-6.7); Basophils % 0.6; Eosinophils % 2.5; HCT 48.8 % (40.0-50.0); HGB 15.7 g/dL (13.5-17.5); Immature Grans % 0.3; Lymphocytes % 21.1; MCH 28.2 pg (27.0-33.0); MCHC 32.2 % (32.0-36.0); MCV 88 fL (80-95); MPV 8.9 fL (8.0-11.0); Monocytes % 9.6; Neutrophils % 65.9; Platelet Count 375 10^3/uL (130-400); RBC 5.56 10^6/uL (4.36-5.78); RDW-SD 42.4 fL; WBC 8.67 10^3/uL (4.4-10.8)
[2022-10-16 15:39] LABS: Bilirubin Negative (Negative); Blood Moderate (Negative); Clarity Clear (Clear); Glucose Negative (Negative); Ketones Negative (Negative); Leukocyte Esterase Negative (Negative); Nitrite Negative (Negative); Specific Gravity >= 1.030 (1.005-1.025); Urobilinogen 0.2 mg/dL (Up to 0.2); pH 5.5 (5-8)
[2022-10-16 15:48] LABS: Bacteria Negative HPF (Negative); C & S Indicated? No; Casts Negative LPF (Negative); Crystals Negative HPF (Negative); Epithelial Cells Few HPF (Negative); Mucus Negative (Negative); Other Cells Negative (Negative); RBC 20-50 HPF (0-2); WBC 0-2 HPF (0-5)
[2022-10-16 16:37] LABS: ALT 77 U/L (16-63); AST 46 U/L (15-37); Albumin 3.6 g/dL (3.4-5.0); Alkaline Phosphatase 138 U/L (46-116); Anion Gap 11.4 mmol/L (3-11); BUN 15 mg/dL (7-18); Bilirubin, Total 0.5 mg/dL (0.2-1.0); CO2 28.6 mmol/L (21.0-32.0); Calcium 9.4 mg/dL (8.5-10.1); Calculated LDL 136 mg/dL (<100); Chloride 101 mmol/L (98-107); Cholesterol 222 mg/dL (<200); Estimated GFR 86.16 (mL/min/1.73m2); Glucose 117 mg/dL (74-106); HDL Cholesterol 43 mg/dL (40-60); Potassium 4.6 mmol/L (3.5-5.1); Sodium 141 mmol/L (136-145); Total Protein 7.8 g/dL (6.4-8.2); Triglyceride 219 mg/dL (<150)
[2022-10-18 10:42] LABS: Hepatitis C Ab w Rflx HCV PCR Negative (Negative)
== END 2022-10-16 15:46 | disposition home or self-care (01) ==
LOC: LBO 15:46
PROVIDERS: PCP Family Medicine; Visit Provider Family Medicine
DX: N43.3 Hydrocele, unspecified (principal); Z00.00 Encounter for general adult medical examination without abnormal findings; Z13.6 Encounter for screening for cardiovascular disorders; R30.0 Dysuria
CPT/HCPCS: 36415; 80053; 80061; 86803; 81003; 81015; 85025

== ENCOUNTER 2022-10-17 06:04 | Emergency (ER) | payer MEDICAID, SELFPAY ==
[2022-10-17] VITALS (13 sets, daily range): BP systolic 137–156; BP diastolic 89–122; PULSE 79–115; RESP 18–20; TEMP 36.6; O2SAT 84–97
--- NOTE | 2022-10-17 06:15 | DI.US_ITS ---
Exam(s) US SCROTUM EXAM: US SCROTUM CLINICAL HISTORY: eval left teste for mass/hydrocele. TECHNIQUE: Scrotal ultrasound performed using grayscale, color-flow and spectral Doppler analysis. COMPARISON: US US SCROTUM ULTRASOUND from 04/25/2021 FINDINGS: Right testicle: 5 x 2.6 x 2.9 cm Echogenicity: Normal. Contour: Smooth. Mass: None seen. Microlithiasis: None. Hydrocele: None. Variocele: None. Hernia: No peristalsing bowel loop identified. Epididymis: Normal. Left testicle: 4.9 x 3.3 x 3.4 cm Echogenicity: There is increased vascularity of the left testicle. Contour: Smooth. Mass: None seen. Microlithiasis: None. Hydrocele: There is a 4.5 x 1.5 x 1.3 cm hydrocele. Variocele: None. Hernia: No peristalsing bowel loop identified. Epididymis: There is increased echogenicity of the epididymis. DOPPLER: Color: Increased blood flow is seen in the left testicle. Normal blood flow seen to the right testic le. IMPRESSION: 1. Increased blood flow to both the left testicle and left epididymis suspicious for left epididymal orchitis. 2. Findings were discussed with Dr. Petersen on 10/17/2022. DATA REPOSITORY:
[2022-10-17] MEDS: Ketorolac 30 MG/ML VIAL IM (06:30)
--- NOTE | 2022-10-17 06:49 | ED.GENADUL_ITS ---
Discharge Plan Discharge Details Chief Complaint: Urinary Primary Care Provider: Debra Travis ED Provider: Demian Sanchez Home Meds and New Rx's Prescriptions: No Action No Known Home Meds Medical Decision Making This is a 62-year-old male with a past medical history of a previous right hydrocele, previous inguinal hernia that was surgically repaired on the right-hand side, who presents today for left testicular pain. Patient states that the pain has been present for the last 6 days. It was gradual in onset. At about the same time he noticed that his left testicle was enlarging. He states that it feels identical to his previous hydrocele. He went to see his primary care provider Dr. Travis, and he states that an ultrasound was ordered but it was quite a ways away and scheduling. He states that Dr. Travis told me I should come in when the ER was quiet to get things moving quicker. That being said he has been taking [place]'s from a friend of mine and states that they make me feel like a normal person again when I take them. They also help with his pain. He denies any fever or chills. He denies any dysuria. He denies any nausea or vomiting. No other complaints at this time. No other modifying factors. Of note the patient did have blood work drawn yesterday, all of which was normal in regards to his urine, and renal function however there was evidence of some moderate blood in his urine. No other complaints at this time. No other modifying factors. Exam demonstrates well-appearing male, mildly enlarged left testicle. Diagnosis is highest for hydrocele. Mass is less likely. No evidence of strangulated inguinal hernia. Although I feel it somewhat less likely that his primary care provider told him to come in at 5 in the morning for expedited care, we are still happy to expedite his care since he is here. We will perform an ultrasound when ultrasonographers arrive, give Toradol, monitor closely and reassess. Symptoms inconsistent with testicular torsion at this time. Case will be signed out to my colleague for follow-up on ultrasound. HPI General Date/Time Provider Initiated Documentation: 10/17/22 06:08 . HPI Narrative: This is a 62-year-old male with a past medical history of a previous right hydrocele, previous inguinal hernia that was surgically repaired on the right-hand side, who presents today for left testicular pain. Patient states that the pain has been present for the last 6 days. It was gradual in onset. At about the same time he noticed that his left testicle was enlarging. He states that it feels identical to his previous hydrocele. He went to see his primary care provider Dr. Travis, and he states that an ultrasound was ordered but it was quite a ways away and scheduling. He states that Dr. Travis told me I should come in when the ER was quiet to get things moving quicker. That being said he has been taking [place]'s from a friend of mine and states that they make me feel like a normal person again when I take them. They also help with his pain. He denies any fever or chills. He denies any dysuria. He denies any nausea or vomiting. No other complaints at this time. No other modifying factors. Of note the patient did have blood work drawn yesterday, all of which was normal in regards to his urine, and renal function however there was evidence of some moderate blood in his urine. No other complaints at this time. No other modifying factors. 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 3.ENT: Atraumatic external nose and ears. Moist MM. Neck: Symmetric, trachea midline, No thyromegaly. 4.CVS: +S1/S2, No murmurs or gallops. Peripheral pulses 2+ and equal in all extremities. Brisk capillary refill in all extremities. 5.RESP: Unlabored respiratory effort. Clear to auscultation bilaterally. No wheezes rales or rhonchi 6.GI: Soft, Nontender/Nondistended, No hepatosplenomegaly. No guarding or rebound. Left testicle demonstrates a notably enlarged testicle, it is soft, but not fluctuant. Minimally tender. No abnormal lie. Suspect hydrocele. Mild left inguinal hernia. Easily reducible. Right testicle is nontender unremarkable with normal cremasteric reflex 7.MSK: Normocephalic/Atraumatic, Extremities w/o deformity or ttp No cyanosis or clubbing, Normal movement of all extremities 8.Skin: Warm, Dry. No rashes or lesions. 9.Neuro: glass robot operator II-XII grossly intact. Sensation grossly intact, no focal neurologic deficits. 10.Psych: (AAO) x3. Appropriate mood and affect Course Vital Signs Vital signs: Vital Signs Temperature 36.6 C 10/17/22 06:06 Pulse 115 H 10/17/22 06:06 Respiratory Rate 20 10/17/22 06:06 Blood Pressure 151/90 H 10/17/22 06:06 Pulse Oximetry 95 10/17/22 06:06 Temperature 36.6 C 10/17/22 06:06 Temperature Source Oral 10/17/22 06:06 Pulse 115 H 10/17/22 06:06 Respiratory Rate 20 10/17/22 06:06 Respiratory Effort Normal, Non-Labored 10/17/22 06:13 Blood Pressure 151/90 H 10/17/22 06:06 Blood Pressure Position Sitting 10/17/22 06:06 Pulse Oximetry 95 10/17/22 06:06 Oxygen Delivery Method Room Air 10/17/22 06:06 Oxygen Flow Rate 0 10/17/22 06:06 Pain Level 5 10/17/22 06:30
--- NOTE | 2022-10-17 07:00 | NUR.NOTE ---
Nursing Note: Report received from Nga CHRISTENSEN. Pt resting in bed, no need voiced. Call light in reach
--- NOTE | 2022-10-17 07:02 | DI.CT_ITS ---
Exam(s) CT ABDOMEN PELVIS WO/W EXAM: CT ABDOMEN PELVIS WO/W CLINICAL HISTORY: hematuria, r31.9 TECHNIQUE: Imaging Protocol: Axial computed tomography images with coronal and sagittal reformatted images were created and reviewed CONTRAST MATERIAL: Intravenous: Omnipaque 350 Contrast volume:100 mL Oral: No CT CT PELVIC WO from 04/08/2021 FINDINGS: ABDOMEN: Lung Bases: Scarring or atelectasis is seen in the lung bases, right greater than left. There is a s mall hiatal hernia. Liver: Normal density. No measurable mass. Portal, Superior Mesenteric, and Splenic Veins: Unremarkable. Gallbladder and Biliary Tract: There is thickening of the wall of the gallbladder with mild enhanceme nt. There is infiltration in the surrounding soft tissues. No biliary ductal dilatation is present. Pancreas: Normal density, no abnormal calcifications or inflammatory process. Spleen: Normal. Adrenals: No masses seen. Kidneys: Normal size, contour and axis. No radiodense stones or obstructive uropathy. There are bilat eral simple renal cysts. The largest is in the right kidney and measures 1.5 x 1.0 cm. No follow-up is recommended. There are no filling defects seen in the renal collecting system. Abdominal Aorta: Abdominal portion non-dilated. Atherosclerosis is present. Bowel: There is diverticulosis of the colon, but no evidence of acute diverticulitis. Appendix is un remarkable. Peritoneal Cavity: No ascites, collection or mesenteric inflammatory response. No free air. Lymph Nodes: Within normal limits. Bones: Within normal limits for the patient's age. Soft Tissues: There is a small fat containing umbilical hernia. There is a fat containing left ingui nal hernia. PELVIS: Bladder: Symmetric distention, no gross wall thickening. Reproductive Organs: Mildly enlarged prostate gland. Lymph Nodes: Within normal limits. Bones: Within normal limits for the patient's age. IMPRESSION: 1. No evidence of nephrolithiasis, hydronephrosis or renal mass. 2. Gallbladder wall thickening and pericholecystic fluid. The findings may represent acute cholecyst itis. Gallbladder ultrasound is recommended for further evaluation. 3. Colonic diverticulosis but no evidence of acute diverticulitis. 4. Findings were discussed with Dr. Petersen in the emergency department at 8:48 a.m. on 10/18/2027. RADIATION DOSE DELIVERED: 3,429.8mGy.cm Total DLP 3,429.8mGy.cm Total DLP DATA REPOSITORY: All CT scans at this facility are submitted to the National Radiology Data Registry (NRDR) Dose Index Registry (DIR) with the [employer] (A[employer]). RADIATION OPTIMIZATION: All CT scans at this facility use at least one of these dose optimization te chniques: automated exposure control; mA and/or kV adjustment per patient size (includes targeted exa ms where dose is matched to clinical indication); or iterative reconstruction.
--- NOTE | 2022-10-17 07:36 | W.EDPROG ---
Date of service: 10/17/22 Time of Service: 07:36 Medical Decision Making I received signout on this 62-year-old male with left-sided testicular pain. Patient has reported history of a right hydrocele. He is in the emergency department pending a testicular ultrasound and a CT urogram. He has outpatient primary care follow-up. We will follow-up with patient following imaging. 8:55 AM I received a call from Dr. Melvin in radiology who noted that the patient had abnormalities around his gallbladder for which I ordered a right upper quadrant ultrasound. I also ordered a CMP and lipase in addition to CBC. Patient also notes that he has had some redness in his right eye. He reports that he was due to see Elda watson for cataract surgery. He says that he has not had any recent foreign bodies in his eye but that last summer he might of gotten a piece of brush in his eye while cutting firewood. On exam patient has what appears to be a pinguecula that has become inflamed as there is an erythematous and inflamed appearing mass extending from the medial canthus towards the cornea but not crossing the limbus. Given no reported foreign body I will defer fluorescein staining and slit-lamp examination at this point. Will have patient follow-up with Elda watson later this week. His vison was 20/200 together and with each eye individually however the patient also reports that he has not had issues driving. Will send a prescription for artificial tears to treat inflamed pinguecula. 12:15 PM Patient was found on scrotal ultrasound to have a suspicious area on his left testicle concerning for left epididymal orchitis. Given his age and his lack of urethral discharge we will treat for E. coli. He reports that he is occasionally sexually active with a single female partner with whom he has been for 20 years. Patient takes no medications and to ensure that he is adherent with therapy will treat with ceftriaxone 500 mg once and azithromycin 1 g p.o. A fax has been sent to the urology clinic for outpatient follow-up. 12:35 PM I spoke with Dr. Cameron from general surgery concerning the patient's pericholecystic fluid and gallbladder wall thickening and he agreed that the patient gallbladder wall thickening and pericholecystic fluid might be an incidental finding. His alkaline phosphatase was mildly elevated. He has not been vomiting nor having any diarrhea. He has a soft nontender abdomen and has no right upper quadrant tenderness and no Pressley sign. He agreed that outpatient follow-up was appropriate. We will give patient return indications including any right upper quadrant pain any fevers any nausea or any vomiting. Sign Out Sign Out Data: Sign Out Comment: Suspected left-sided hydrocele. Follow-up on urogram and ultrasound. Sent in by Dr. Travis Last updated by Demian Sanchez DO at 10/17/22 07:17 Discharge Plan Disposition Patient Disposition: Home Discharge Details Clinical Impression: Pinguecula of right eye, Acute epididymo-orchitis, Thickening of wall of gallbladder with pericholecystic fluid Primary Care Provider: Debra Travis ED Provider: Charlie Petersen Home Meds and New Rx's Prescriptions: New Artificial Tears (cmc) 1 % drops 1 drp ophthalmic (eye) 4-6XD PRNQty: 15 0RF Discharge Instructions Instructions: Epididymitis (ED) Additional Instructions: You were seen in the emergency department for your scrotal pain. There is concerns that you have signs of infection for which you are receiving antibiotics in the emergency department. The urology clinic will call you for a follow-up. You were also found to have some thickening around your gallbladder wall. Please return to the emergency department if you develop nausea vomiting or if you develop any diarrhea or any fevers. The general surgery clinic will call you for follow-up next week. You also were found to have some inflammation around your eye. The ophthalmology team at [facility] will call you for follow-up.
[2022-10-17] MEDS: Omnipaque 350 MG/ML 500 ML BTL-Imaging package IJ (08:16)
[2022-10-17] MEDS: Normal Saline - Diluent 50 ML VIAL IV (08:23)
--- NOTE | 2022-10-17 08:45 | DI.US_ITS ---
Exam(s) US ABDOMEN LIMITED EXAM: US ABDOMEN LIMITED CLINICAL HISTORY: Gallbladder wall thickening seen on CT TECHNIQUE: Ultrasound abdomen performed using standard protocol. COMPARISON: CT CT ABDOMEN PELVIS WO/W from 10/17/2022 US US SCROTUM from 10/17/2022 FINDINGS: PANCREAS: Normal where visualized. LIVER: Fatty liver. Hepatopedal flow in the Portal Vein. The liver measures in 18.3 cm length. GALLBLADDER: No evidence of cholelithiasis. The gallbladder wall is thickened measuring up to 9 mm. There is a small amount of pericholecystic fluid. BILIARY SYSTEM: Common bile duct measures < 7 mm. No intrahepatic biliary ductal dilation. WILLIAMSON'S SIGN: Negative. RIGHT KIDNEY: Kidney is normal in size. No evidence of renal calculi. No evidence of hydronephrosis. There is a 1.4 cm simple cyst in the right kidney. No follow-up is recommended. ASCITES: None seen. ABDOMINAL AORTA AND IVC: Visualized portions normal caliber. IMPRESSION: 1. Findings which may represent acalculous cholecystitis. Please correlate clinically. 2. Findings were discussed with Dr. Petesren at 11 a.m. on 10/17/2022. DATA REPOSITORY:
[2022-10-17 09:02] LABS: HCT 46.4 % (40.0-50.0); HGB 15.3 g/dL (13.5-17.5); MCH 28.3 pg (27.0-33.0); MCV 86 fL (80-95); Platelet Count 361 10^3/uL (130-400); RDW 12.9 % (11.8-14.1); RDW-SD 40.1 fL; WBC 8.93 10^3/uL (4.4-10.8)
[2022-10-17 09:17] LABS: ALT 80 U/L (16-63); AST 42 U/L (15-37); Albumin 3.3 g/dL (3.4-5.0); Alkaline Phosphatase 132 U/L (46-116); Anion Gap 8.6 mmol/L (3-11); BUN 15 mg/dL (7-18); Bilirubin, Total 0.5 mg/dL (0.2-1.0); CO2 26.4 mmol/L (21.0-32.0); Calcium 8.9 mg/dL (8.5-10.1); Chloride 101 mmol/L (98-107); Estimated GFR 86.16 (mL/min/1.73m2); Glucose 96 mg/dL (74-106); Lipase 28 U/L (16-77); Potassium 4.3 mmol/L (3.5-5.1); Sodium 136 mmol/L (136-145); Total Protein 7.7 g/dL (6.4-8.2)
--- NOTE | 2022-10-17 09:47 | NUR.NOTE ---
Nursing Note: Referral faxed to [facility] [place] for inflamed pinguecula/decreased visual acuity. By the end of the week.
--- NOTE | 2022-10-17 09:50 | NUR.NOTE ---
Nursing Note: Referral faxed to [facility] for inflamed pinguecula/decreased visual acuity/ by the end of the week.
--- NOTE | 2022-10-17 10:12 | NUR.NOTE ---
Nursing Note:Report given to Patti CHRISTENSEN
--- NOTE | 2022-10-17 12:23 | NUR.NOTE ---
Addendum entered by Jessy Greenberg 10/17/22 12:52: Referral faxed to [facility] for gallbladder wall thickening w/fluid/in 1 week. Original Note: Nursing Note: Referral faxed to [facility] for orchitis/follow up next week.
[2022-10-17] MEDS: cefTRIAXone 1 GM VIAL 0.5 GM IM (12:36)
[2022-10-17] MEDS: Azithromycin 250 MG TAB 1000 MG PO (12:36)
[2022-10-17] MEDS: Water,Injection,Sterile 10 ML VIAL (13:07)
== END 2022-10-17 13:18 | disposition home or self-care (01) ==
PROVIDERS: Emergency Provider Emergency Medicine; PCP Family Medicine
DX: R31.9 Hematuria, unspecified (principal); H11.151 Pinguecula, right eye; N45.3 Epididymo-orchitis; K82.4 Cholesterolosis of gallbladder
CPT/HCPCS: 80053; 83690; 85027; 96372; 99284; 74178; 76705; 76870; J0696; J1885

== ENCOUNTER 2022-11-19 03:34 | Outpatient (CLI) | payer MEDICAID, SELFPAY ==
[2022-11-19 12:33] LABS: ALT 41 U/L (16-63); AST 19 U/L (15-37); Albumin 3.9 g/dL (3.4-5.0); Alkaline Phosphatase 101 U/L (46-116); Bilirubin, Direct 0.1 mg/dL (0.0-0.2); Bilirubin, Total 0.5 mg/dL (0.2-1.0); C-Reactive Protein 0.39 mg/dL (0.0-0.3); GGT 32 U/L (15-85); Lipase 32 U/L (16-77); Total Protein 7.9 g/dL (6.4-8.2)
== END 2022-11-19 03:35 | disposition home or self-care (01) ==
LOC: LOS 03:34
PROVIDERS: PCP Family Medicine; Visit Provider Surgery
DX: E78.5 Hyperlipidemia, unspecified (principal); K82.8 Other specified diseases of gallbladder; N45.3 Epididymo-orchitis; R19.7 Diarrhea, unspecified; R79.89 Other specified abnormal findings of blood chemistry; Z83.79 Family history of other diseases of the digestive system
CPT/HCPCS: 36415; 80076; 83690; 82977; 86140

== ENCOUNTER 2022-11-21 01:18 | Outpatient (CLI) | payer MEDICAID, SELFPAY ==
--- NOTE | 2022-11-21 07:30 | DI.NM_ITS ---
Exam(s) NM HEPATOBILIARY CCK GRP EXAM: NM HEPATOBILIARY CCK GRP CLINICAL HISTORY: thickening gb wall/elevated LFT's,diarrhea,k82.8,r19.7,r79.89. TECHNIQUE: Injected dose: 5 mCi Tc-99 mebrofenin Initial dynamic images: 60 minutes Delayed images 70 minutes. COMPARISON: US US ABDOMEN LIMITED from 10/17/[address] ABDOMEN PELVIS WO/W from 10/17/2022 FINDINGS: Normal hepatic transit time. Prompt excretion into the small bowel. Prompt excretion into the gallbladder. IMPRESSION: 1. No evidence of acute cholecystitis.
[2022-11-21] MEDS: Sincalide 5 MCG VIAL 1.5 MCG IJ (12:05)
[2022-11-21] MEDS: Water,Injection,Sterile 10 ML VIAL IJ (12:05)
== END 2022-11-21 01:38 ==
LOC: DI 01:18
PROVIDERS: PCP Family Medicine; Visit Provider Surgery
DX: K82.8 Other specified diseases of gallbladder (principal); R19.7 Diarrhea, unspecified; R79.89 Other specified abnormal findings of blood chemistry
CPT/HCPCS: 78227; J2805

== ENCOUNTER 2023-04-26 06:28 | Day surgery (SDC) | payer MEDICAID, SELFPAY ==
[2023-04-26 06:30] VITALS: BP 136/90; PULSE 71; RESP 16; TEMP 36.7; O2SAT 97
[2023-04-26] MEDS: Tropicam./Phenyleph. (1/2.5%) 5 ML BTL OS ×3 (06:40→06:50)
--- NOTE | 2023-04-26 07:01 | W.ANESPRE ---
General Info Date of Service Date Performed: 04/26/23 Height: 5 ft 8 in Weight: 92.8 kg Body Mass Index (BMI): 31.1 Surgical Procedure: Operation Date: 04/26/23 07:40 Proposed Procedure Side Surgeon p Cataract Extraction with IOL Implant Left Riley Zazueta MD Meds Allergies and Home Medications Allergies Allergy/AdvReac Type Severity Reaction Status Date / Time No Known Allergies Allergy Verified 04/26/23 06:37 Home Medication Medication Instructions Recorded Unknown [No Known Home Meds] 11/26/22 Current Visit Medications: Current Medications Generic Name Dose Route Start Last Admin Trade Name Freq PRN Reason Stop Dose Admin Acetaminophen 1,000 mg 04/26/23 06:00 Acetaminophen 500 Mg Tab PO 05/26/23 05:59 Q4H PRN PRN Balanced Salt Solution 500 ml 04/26/23 06:00 Balanced Salt Soln.-Plus 500 Ml Bag OP 05/26/23 05:59 DIRECTED GOMEZ Miscellaneous Medication 0 ml 04/26/23 06:00 Prednisolone 1%, Moxifloxacin 0.5%, Nepafenac 0.1% 5ml Btl OS 05/26/23 05:59 DIRECTED GOMEZ Miscellaneous Medication 0 ml 04/26/23 06:00 04/26/23 06:50 Tropicam./Phenyleph. 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 Hyperlipidemia E78.5 Cataract H26.9 Hematuria R31.9 Umbilical hernia K42.9 Hiatal hernia K44.9 Medical History Medical History Anxiety Diverticula of colon Family history of gallbladder disease Left inguinal hernia s/p repair Recurrent inguinal hernia of right side with obstruction Surgical History Surgical History History of arthroscopy of knee left History of inguinal hernia repair Right: 08/18/20182010 Tobacco Smoking/Tobacco Use Status: Former Tobacco Use Alcohol Alcohol Intake: current Alcohol intake frequency: holidays/special occasions only Substance Use Substance use: Occasionally Substance use type: marijuana Vital Signs and Lab Results Vital Signs Most Recent Vital Signs in EMR: Most Recent Vital Signs Temp Pulse Resp BP Pulse Ox 36.7 C 71 16 136/90 97 04/26/23 06:30 04/26/23 06:30 04/26/23 06:30 04/26/23 06:30 04/26/23 06:30 Lab Results Blood Type / Crossmatch: No Data to Display Complete Blood Count: No Data to Display Complete Metabolic Panel: No Data to Display Liver Function Panel: No Data to Display Coagulation Panel: No Data to Display Cardiac Panel: No Data to Display Arterial Blood Gas: No Data to Display Venous Blood Gas: No Data to Display Pancreas Panel: No Data to Display Thyroid Panel: No Data to Display Infectious Disease: No Data to Display Blood Cultures: No Data to Display Toxicology Panel: No Data to Display Anesthesia Assessment and Plan Anesthesia History Personal History: No History of Anesthesia Complications Family History: No Family History of Anesthesia Complications Exercise Tolerance Exercise Tolerance: Metabolic Equivalents>4 Pertinent Negatives Pertinent Negatives: No Symptoms of GERD, No Major Cardiovascular Symptoms or Complaints, No Major Pulmonary Symptoms or Complaints and No History of CVA/TIA Cardiac & Pulmonary Exam Cardiac Exam: Normal S1/S2 Heart Sounds Pulmonary Exam: Clear Bilateral Breath Sounds Implantable Cardiac Device Does patient have a Pacemaker or an ICD?: No Airway Exam Known Difficult Airway: No Mallampati Class: 2 Mouth Opening: Normal (> 3cm) Thyromental Distance: Greater than 3 cm Neck Range of Motion: Full ROM Neck Circumference: Normal Teeth Condition: Normal Dentition ASA Classification ASA Score: ASA 2 Emergency Case?: No NPO Status NPO Status: NPO Clears >2 hours, Solids >8 hours Anesthesia Plan Resuscitation Status: Full Code Anesthesia Technique: MAC Anesthesia Airway Planned: Natural Airway Monitors Used: Standard Monitors
[2023-04-26 07:04] VITALS: BMI 31.1
[2023-04-26] MEDS: Duovisc Viscoelastic System EACH 1 EACH (07:53)
[2023-04-26] MEDS: Povidone-Iodine Ophth 30 ML BTL (07:54)
[2023-04-26] MEDS: Phenylephrine/Lidocaine (15/10) MG/ML 1 ML VIAL (07:54)
[2023-04-26] MEDS: Trypan Blue 0.06% 0.5 ML SYR (07:55)
[2023-04-26] MEDS: Balanced Salt Soln.-PLUS 500 ML BAG OP (07:55)
[2023-04-26] MEDS: Lidocaine 1% Pres-Free 5 ML VIAL (07:56)
--- NOTE | 2023-04-26 07:59 | W.PM.DSUDISC ---
Date of service: 04/26/23 Time of Service: 07:59 Discharge Plan Disposition Patient Disposition: Home Discharge Details Attending Provider: Riley Zazueta Primary Care Provider: Debra Travis Home Meds and New Rx's Prescriptions: No Action No Known Home Meds Discharge Instructions Stand Alone Forms: Post-op Topical Cataract, Tamika Galdamez (DSU) Discharge Orders Discharge Orders: Discharge Order (Routine); Ordered 04/26/23 Ordered By: Riley Zazueta DS: Diagnosis Discharge Diagnosis (1) Nuclear age-related cataract, left eye: Status: Resolved
--- NOTE | 2023-04-26 08:00 | W.PM.OP ---
Date of service: 04/26/23 Time of Service: 08:00 Operative Note Operative Note DATE OF PROCEDURE: 04/26/23 PRE-OP DIAGNOSIS: Dense nuclear cataract, left eye POST-OP DIAGNOSIS: same PROCEDURE: Cataract extraction using phacoemulsification with intraocular lens implant, left eye SURGEON: Riley Zazueta ANESTHESIA TYPE: Local By Surgeon and MAC Refer to Anesthesia Record PATHOLOGY: none sent COMPLICATIONS: None Patient was transported to: same day Patient's condition: stable Implants: Mychal and Mychal Tecnis Eyhance [id number] Indications: Progressive decreased vision due to cataract, left eye Procedure Description: CATARACT SURGERY OPERATIVE REPORT PREOPERATIVE DIAGNOSIS: 1. Dense nuclear cataract, left eye POSTOPERATIVE DIAGNOSIS: Same OPERATION: 1. Cataract extraction using phacoemulsification with posterior chamber intraocular lens implant, left eye. IOL: IOL Cross Tie Maker/Model: Mychal & Mychal Tecnis Eyhance DIB00 IOL Power: + 19.5 diopters IOL Serial Number: [id number] Optic Diameter: 6.0 mm Haptic/Overall Diameter: 13.0 mm PHACO INFO: Benigno [employer] Gamesurion Vision System with OZil and Active Fluidics Cumulative Dispersed Energy (CDE): 19.95 seconds SURGEON: Riley Zazueta MD, GINI ANESTHESIA: Monitored A [facility] (MAC), with local sub-tenon's anesthetic infiltration COMPLICATIONS: None SPECIMENS: None INDICATIONS FOR PROCEDURE: The patient is a 62-year-old male with history of diminished visual acuity in his left eye secondary to the development of dense nuclear cataract. He is significantly symptomatic that he desires cataract surgery and attempt to improve and maximize his vision. See office notes for detailed information. PROCEDURE: The correct surgical eye was identified and marked as the left eye and the pupil was dilated in the preoperative area using mydriatics and cycloplegics. The dilated pupil size was 5.0 mm. The patient elected to proceed without oral sedation. The patient was brought to the operating room where cardiopulmonary monitoring was instituted and surgical time-out was performed, confirming the correct operative eye and IOL power. Topical anesthesia was administered and ophthalmic povidone-iodine 5% was instilled into the conjunctival fornices. The mallika-ocular area was prepped with Betadine 10% solution and draped in the usual sterile fashion for intraocular surgery, including an aperture drape. A Tegaderm transparent film dressing was cut in half and used to cover the lashes and lid margins. Care was taken to sequester the lashes and lid margins under the Tegaderm dressing. A lid speculum was placed between the lids of the operative eye and the Benigno Lux[employer] Revalia operating microscope was maneuvered into position. Bebeto scissors were then used to make a conjunctival buttonhole approximately 6mm posterior to the limbus in the inferonasal quadrant. Blunt dissection was carried out to expose bare sclera, and a blunt-tipped sub-tenon?s anesthesia cannula was introduced and passed posteriorly along the globe where non-preserved plain lidocaine was injected into posterior sub-Tenon?s space. A sideport knife was used to make a paracentesis port. VisionBlue was injected into the anterior chamber and allowed to sit for 20 seconds. Intraocular phenylephrine/lidocaine was injected into the anterior chamber.. The anterior chamber was filled with viscoelastic. A keratome knife was used to construct a 2-plane near-clear corneal tunnel extending 2.0mm into clear cornea. A flap was raised on the anterior capsule and capsulorhexis forceps were used to complete a continuous curvilinear capsulorhexis of 5.0 mm. Balanced salt solution was then used to perform cortical cleaving hydrodissection and nuclear hydrodelineation until the lens could be freely rotated within the capsular bag. The lens nucleus was then disassembled and removed within the capsular bag and iris plane using phacoemulsification. Residual cortical material was removed using the irrigation/aspiration handpiece. The posterior capsule was carefully polished to remove as much residual lens epithelial cells as safely possible. The capsular bag was then inflated and the anterior chamber deepened with viscoelastic. The lens implant described above was inserted into the capsular bag using the Mychal and Mychal Simplicity pre-loaded injector. A Kuglen hook was used to dial the IOL into position. Residual viscoelastic was then removed first from posterior to the IOL, then from the anterior chamber using the I/A handpiece. The lens implant was noted to center nicely within the capsular bag. The incisions were stromally hydrated, and the anterior chamber was reformed using BSS. Then 0.5cc of moxifloxacin 1.0mg/ml were injected into the capsular bag and anterior chamber. The incisions were checked with a Weck spear and found to be secure. Several drops of ophthalmic povidone-iodine 5% were then applied to the eye followed by two drops of Imprimis combination prednisolone/moxifloxacin/nepafenac solution. The drapes were removed and a clear plastic protective eye shield was placed over the eye. The patient was then returned to Same Day Surgery in stable condition.
[2023-04-26 08:04] VITALS: BP 133/94; PULSE 68; RESP 18; TEMP 36.6; O2SAT 95
--- NOTE | 2023-04-26 08:09 | W.ANESPOSTOP ---
Postoperative Evaluation Date, Time and Location Date Performed: 04/26/23 Time Performed: 08:10 Patient Location: Day Surgery Unit Vital Signs Most Recent Imported Vital Signs: Most Recent Vital Signs Temp Pulse Resp BP Pulse Ox 36.6 C 68 18 133/94 H 95 04/26/23 08:04 04/26/23 08:04 04/26/23 08:04 04/26/23 08:04 04/26/23 08:04 Pain Score Most Recent Pain Score: Most Recent Pain Score Pain Level 0 04/26/23 08:04 Assessment Mental Status: Awake (Alert & Oriented to Patient Baseline) Airway and Respiratory Function: Patent airway with normal (patient baseline) respiratory exam Cardiovascular Function: Hemodynamically Stable Hydration Status: Adequately Hydrated Nausea & Vomiting: No Nausea or Vomiting Pain: Pt. Denies Any Pain Peripheral Nerve Block: Patient did not receive a nerve block
== END 2023-04-26 08:35 | disposition home or self-care (01) ==
LOC: SUR 06:29
PROVIDERS: PCP Family Medicine; Visit Provider Ophthalmology
PROC: (CPT 66984; principal; 2023-04-26 07:30)
DX: H25.12 Age-related nuclear cataract, left eye (principal)
CPT/HCPCS: 66984; V2632

== ENCOUNTER 2023-05-10 06:54 | Day surgery (SDC) | payer MEDICAID, SELFPAY ==
[2023-05-10 07:12] VITALS: BP 137/87; PULSE 78; RESP 16; TEMP 36.5; O2SAT 98
[2023-05-10] MEDS: Tropicam./Phenyleph. (1/2.5%) 5 ML BTL OD ×3 (07:20→07:30)
--- NOTE | 2023-05-10 07:26 | W.ANESPRE ---
General Info Date of Service Date Performed: 05/10/23 Height: 5 ft 6 in Weight: 91.8 kg Body Mass Index (BMI): 32.6 Surgical Procedure: Operation Date: 05/10/23 08:25 Proposed Procedure Side Surgeon p Cataract Extraction with IOL Implant Right Riley Zazueta MD Meds Allergies and Home Medications Allergies Allergy/AdvReac Type Severity Reaction Status Date / Time No Known Allergies Allergy Verified 05/08/23 10:56 Home Medication Medication Instructions Recorded Unknown [No Known Home Meds] 11/26/22 Current Visit Medications: Current Medications Generic Name Dose Route Start Last Admin Trade Name Freq PRN Reason Stop Dose Admin Acetaminophen 1,000 mg 05/10/23 06:00 Acetaminophen 500 Mg Tab PO 06/09/23 05:59 Q4H PRN PRN Balanced Salt Solution 500 ml 05/10/23 06:00 Balanced Salt Soln.-Plus 500 Ml Bag OP 06/09/23 05:59 DIRECTED GOMEZ Miscellaneous Medication 0 ml 05/10/23 06:00 Prednisolone 1%, Moxifloxacin 0.5%, Nepafenac 0.1% 5ml Btl OD 06/09/23 05:59 DIRECTED GOMEZ Miscellaneous Medication 0 ml 05/10/23 06:00 05/10/23 07:25 Tropicam./Phenyleph. 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 Hyperlipidemia E78.5 Cataract H26.9 Hematuria R31.9 Umbilical hernia K42.9 Hiatal hernia K44.9 Medical History Medical History (Updated 05/10/23 @ 07:18 by Riley Zazueta MD) Anxiety Diverticula of colon Family history of gallbladder disease Left inguinal hernia s/p repair Recurrent inguinal hernia of right side with obstruction Surgical History Surgical History History of arthroscopy of knee left History of inguinal hernia repair Right: 08/18/20182010 Tobacco Smoking/Tobacco Use Status: Former Tobacco Use Alcohol Alcohol Intake: current Alcohol intake frequency: holidays/special occasions only Substance Use Substance use: Occasionally Substance use type: marijuana Vital Signs and Lab Results Vital Signs Most Recent Vital Signs in EMR: Most Recent Vital Signs Temp Pulse Resp BP Pulse Ox 36.5 C 78 16 137/87 98 05/10/23 07:12 05/10/23 07:12 05/10/23 07:12 05/10/23 07:12 05/10/23 07:12 Lab Results Blood Type / Crossmatch: No Data to Display Complete Blood Count: No Data to Display Complete Metabolic Panel: No Data to Display Liver Function Panel: No Data to Display Coagulation Panel: No Data to Display Cardiac Panel: No Data to Display Arterial Blood Gas: No Data to Display Venous Blood Gas: No Data to Display Pancreas Panel: No Data to Display Thyroid Panel: No Data to Display Infectious Disease: No Data to Display Blood Cultures: No Data to Display Toxicology Panel: No Data to Display Anesthesia Assessment and Plan Anesthesia History Personal History: No History of Anesthesia Complications Family History: No Family History of Anesthesia Complications Exercise Tolerance Exercise Tolerance: Metabolic Equivalents>4 Pertinent Negatives Pertinent Negatives: No Symptoms of GERD Cardiac & Pulmonary Exam Cardiac Exam: Normal S1/S2 Heart Sounds Pulmonary Exam: Clear Bilateral Breath Sounds Implantable Cardiac Device Does patient have a Pacemaker or an ICD?: No Airway Exam Known Difficult Airway: No Mallampati Class: 2 Mouth Opening: Normal (> 3cm) Thyromental Distance: Greater than 3 cm Neck Range of Motion: Full ROM Neck Circumference: Normal Teeth Condition: Normal Dentition ASA Classification ASA Score: ASA 2 Emergency Case?: No NPO Status NPO Status: NPO Clears >2 hours, Solids >8 hours Anesthesia Plan Resuscitation Status: Full Code Anesthesia Technique: MAC Anesthesia Airway Planned: Natural Airway Monitors Used: Standard Monitors
[2023-05-10 07:29] VITALS: BMI 32.6
[2023-05-10] MEDS: Balanced Salt Soln.-PLUS 500 ML BAG OP (08:16)
[2023-05-10] MEDS: Tetracaine 0.5% 4 ML BTL OD (08:17)
[2023-05-10] MEDS: Lidocaine 1% Pres-Free 5 ML VIAL (08:17)
[2023-05-10] MEDS: Duovisc Viscoelastic System EACH 1 EACH (08:18)
[2023-05-10] MEDS: Phenylephrine/Lidocaine (15/10) MG/ML 1 ML VIAL (08:19)
[2023-05-10] MEDS: Povidone-Iodine Ophth 30 ML BTL (08:20)
[2023-05-10] MEDS: Trypan Blue 0.06% 0.5 ML SYR (08:21)
--- NOTE | 2023-05-10 08:45 | ROE_ITS ---
Date of service: 05/10/23 Time of Service: 08:45 Operative Note Operative Note DATE OF PROCEDURE: 05/10/23 PRE-OP DIAGNOSIS: Dense nuclear cataract, right eye Posterior synechia with poorly dilating pupil, right eye Poor red reflex secondary to dense cataract, right eye POST-OP DIAGNOSIS: same PROCEDURE: 1. Cataract extraction by phacoemulsification with intraocular lens implantation, right eye, with pupillary expansion device SURGEON: Riley Zazueta ANESTHESIA TYPE: Local By Surgeon and MAC Refer to Anesthesia Record PATHOLOGY: none sent COMPLICATIONS: None Patient was transported to: same day Patient's condition: stable Implants: Mychal and Mychal Tecnis Eyhance [id number] Indications: Progressive decreased vision due to cataract, right eye, with poorly dilating pupil Procedure Description: CATARACT SURGERY OPERATIVE REPORT PREOPERATIVE DIAGNOSIS: 1. Dense nuclear cataract, right eye 2. Poorly dilating pupil, right eye, secondary to posterior synechia 3. Poor red reflex, right eye secondary to dense cataract POSTOPERATIVE DIAGNOSIS: Same OPERATION: 1. Cataract extraction using phacoemulsification with posterior chamber intraocular lens implant, right eye. 2. Pupillary dilation and iris stabilization using Malyugin Ring IOL: IOL Rabble Furnace Tender/Model: Mychal & Mychal Tecnis Eyhance DIB00 IOL Power: + 20.5 diopters IOL Serial Number: [id number] Optic Diameter: 6.0mm Haptic/Overall Diameter: 13.0mm PHACO INFO: Benigno Centurion Vision System with OZil and Active Fluidics Cumulative Dispersed Energy (CDE): 12.84 seconds SURGEON: Riley Zazueta MD, GINI ANESTHESIA: Monitored Anesthesia Care (MAC), with local sub-tenon's anesthetic infiltration COMPLICATIONS: None SPECIMENS: None INDICATIONS FOR PROCEDURE: The patient is a 62-year-old male with history of diminished visual acuity in both eyes secondary to the development of dense bilateral cataracts. He has already undergone cataract surgery in the left eye and is doing well postoperatively. He now presents for cataract surgery in the right eye. See office notes for detailed information. PROCEDURE: The correct surgical eye was identified and marked as the right eye and the pupil was dilated in the preoperative area using mydriatics and cycloplegics. The dilated pupil size was 4.0 mm. The patient was brought to the operating room where cardiopulmonary monitoring was instituted and surgical time-out was performed, confirming the correct operative eye and IOL power. Topical anesthesia was administered and ophthalmic povidone-iodine 5% was instilled into the conjunctival fornices. Tthe mallika-ocular area was prepped with Betadine 10% solution and draped in the usual sterile fashion for intraocular surgery, including an aperture drape. A Tegaderm transparent film dressing was cut in half and used to cover the lashes and lid margins. Care was taken to sequester the lashes and lid margins under the Tegaderm dressing. A lid speculum was placed between the lids of the operative eye and the Benigno LuxO R Revalia operating microscope was maneuvered into position. Bebeto scissors were then used to make a conjunctival buttonhole approximately 6mm posterior to the limbus in the inferonasal quadrant. Blunt dissection was carried out to expose bare sclera, and a blunt-tipped sub-tenon?s anesthesia cannula was introduced and passed posteriorly along the globe where non- preserved plain lidocaine was injected into posterior sub-Tenon?s space. A sideport knife was used to make a paracentesis port. VisionBlue was injected into the anterior chamber and allowed to sit for 30 seconds. Intraocular phenylephrine/lidocaine was injected in the anterior chamber. Extensive posterior synechia involving the inferior 180 degrees of the pupil was noted. The anterior chamber was filled with viscoelastic. Viscoat was used initially to aid in pupillary dilation. The posterior synechia had to be released with a Kuglen hook. A keratome knife was used to construct a 2-plane near-clear corneal tunnel extending 2.0mm into clear cornea. A 7.0 mm Malyugin Ring was then inserted into the pupillary space and engaged with the Kuglen hook. A flap was raised on the anterior capsule and capsulorhexis forceps were used to complete a continuous curvilinear capsulorhexis of 5.5 mm. Balanced salt solution was then used to perform cortical cleaving hydrodissection and nuclear hydrodelineation until the lens could be freely rotated within the capsular bag. The lens nucleus was then disassembled and removed within the capsular bag and iris plane using phacoemulsification. Residual cortical material was removed using the irrigation/aspiration handpiece. The posterior capsule was carefully polished to remove as much residual lens epithelial cells as safely possible. The capsular bag was then inflated and the anterior chamber deepened with viscoelastic. The lens implant described above was inserted into the capsular bag using the Mychal and Mychal Simplicity pre-loaded injector. A Kuglen hook was used to dial the IOL into position. The Malyugin Ring was removed in the reverse order of its insertion. Residual viscoelastic was then removed first from posterior to the IOL, then from the anterior chamber using the I/A handpiece. The lens implant was noted to center nicely within the capsular bag. The incisions were stromally hydrated, and the anterior chamber was reformed using BSS. Then 0.5cc of moxifloxacin 1.0mg/ml were injected into the capsular bag and anterior chamber. The incisions were checked with a Weck spear and found to be secure. Several drops of ophthalmic povidone-iodine 5% were then applied to the eye followed by two drops of Imprimis combination prednisolone/moxifloxacin/nepafenac solution. The drapes were removed and a clear plastic protective eye shield was placed over the eye. The patient was then returned to Same Day Surgery in stable condition.
--- NOTE | 2023-05-10 08:45 | W.PM.DSUDISC ---
Date of service: 05/10/23 Time of Service: 08:45 Discharge Plan Disposition Patient Disposition: Home Discharge Details Attending Provider: Riley Zazueta Primary Care Provider: Debra Travis Home Meds and New Rx's Prescriptions: No Action No Known Home Meds Discharge Instructions Stand Alone Forms: Post-op Topical Cataract, Tamika Galdamez (DSU) Discharge Orders Discharge Orders: Discharge Order (Routine); Ordered 05/10/23 Ordered By: Riley Zazueta DS: Diagnosis Discharge Diagnosis (1) Nuclear age-related cataract, right eye: Status: Resolved
[2023-05-10 08:49] VITALS: BP 141/95; PULSE 77; RESP 16; TEMP 36.4; O2SAT 98
--- NOTE | 2023-05-10 09:04 | W.ANESPOSTOP ---
Postoperative Evaluation Date, Time and Location Date Performed: 05/10/23 Time Performed: 08:55 Patient Location: Day Surgery Unit Vital Signs Most Recent Imported Vital Signs: Most Recent Vital Signs Temp Pulse Resp BP Pulse Ox 36.4 C L 77 16 141/95 H 98 05/10/23 08:49 05/10/23 08:49 05/10/23 08:49 05/10/23 08:49 05/10/23 08:49 Pain Score Most Recent Pain Score: Most Recent Pain Score Pain Level 0 05/10/23 08:49 Assessment Mental Status: Awake (Alert & Oriented to Patient Baseline) Airway and Respiratory Function: Patent airway with normal (patient baseline) respiratory exam Cardiovascular Function: Hemodynamically Stable Hydration Status: Adequately Hydrated Nausea & Vomiting: No Nausea or Vomiting Pain: Pt. Denies Any Pain Peripheral Nerve Block: Patient did not receive a nerve block
== END 2023-05-10 09:08 | disposition home or self-care (01) ==
LOC: SUR 06:57
PROVIDERS: PCP Family Medicine; Visit Provider Ophthalmology
PROC: (CPT 66982; principal; 2023-05-10 08:15)
DX: H25.11 Age-related nuclear cataract, right eye (principal); H21.541 Posterior synechiae (iris), right eye; H57.00 Unspecified anomaly of pupillary function; Z98.41 Cataract extraction status, right eye
CPT/HCPCS: 66982; V2632

== ENCOUNTER → 2023-09-24 02:35 | Outpatient (CLI) | payer MEDICAID, SELFPAY ==
--- NOTE | 2023-09-24 07:30 | DI.MRI_ITS ---
Exam(s) MR BRAIN WO EXAM: MR BRAIN WO CLINICAL HISTORY: dizziness x 1 mo,r42 TECHNIQUE: Multiplanar multisequence MRI of the brain was performed. COMPARISON: MR MRI - BRAIN W/WO CONTRAST from 09/21/2015 FINDINGS: VENTRICLES AND EXTRA AXIAL SPACES: Normal in size and morphology for the patient's age. MIDLINE SHIFT: None. CEREBRAL PARENCHYMA: No focus of restricted diffusion to suggest acute infarct. No space-occupying le jessica identified. Mild atrophy . scattered foci of high signal in the white matter consistent with se quela of chronic microvascular disease. Mild progression since the previous exam. HEMORRHAGE: None. BRAINSTEM/CEREBELLUM: Normal. VISUALIZED PARANASAL SINUSES/MASTOIDS:Mild mucous retention at the floor of the left maxillary sinus. Vasculature: Normal flow voids. PITUITARY GLAND: Unremarkable. ORBITS: Unremarkable. IMPRESSION: Mild atrophy. White matter changes likely reflected in microvascular disease. DATA REPOSITORY:
== END ==
PROVIDERS: PCP Family Medicine; Visit Provider Family Medicine
DX: R42 Dizziness and giddiness (principal); G31.9 Degenerative disease of nervous system, unspecified
CPT/HCPCS: 70551

== ENCOUNTER 2023-10-06 10:32 | Emergency (ER) | payer MEDICAID, SELFPAY ==
[2023-10-06 10:40] VITALS: BP 183/113; PULSE 113; RESP 17; TEMP 37.2; O2SAT 97
[2023-10-06 10:53] VITALS: BP 183/113; PULSE 113; RESP 17; TEMP 37.2; O2SAT 97
--- NOTE | 2023-10-06 11:37 | W.ED.GENAD ---
Discharge Plan Disposition Patient Disposition: Home Discharge Details Clinical Impression: Conjunctivitis Primary Care Provider: Debra Travis ED Provider: Simone Posey Home Meds and New Rx's Prescriptions: No Action magnesium oxide 400 mg magnesium capsule 400 mg PO DAILY Discharge Instructions Instructions: Erythromycin (Into the eye), Conjunctivitis (ED) Additional Instructions: Please use the provided erythromycin ointment 4 times daily for the next 7 days. Please continue to monitor symptoms closely and if you do not see any improvement in the next 48 hours it is recommended that you have recheck performed as you may need different medication. Return to the emergency department immediately for any new or significant worsening of symptoms Referrals: [facility] [Outside] (As needed for reassessment or if not improving) Discharge Data Discharge Date/Time-TO BE ENTERED AT DEPARTURE: 10/06/23 11:57 HPI General Mode of arrival: ambulatory. Date/Time Provider Initiated Documentation: 10/06/23 10:43. Limitations to Documentation: no limitations. Information obtained by: patient and RN notes reviewed. History of Present Illness 63 year old M presents to the emergency department with the chief complaint of Right eye redness, described as moderate and similar to prior episodes, Patient started experiencing this day(s) (4) and it has been other (Slightly improving). Patient notes no other symptoms.. Related Data Home Medications Medication Instructions Recorded Confirmed magnesium oxide 400 mg PO DAILY 09/11/23 10/06/23 Allergies Allergy/AdvReac Type Severity Reaction Status Date / Time No Known Allergies Allergy Verified 10/06/23 10:46 General Stated Complaint: EyeProblem LENNOX: 4 Review of Systems Constitutional Constitutional: Denies chills, Denies fever(s) and Denies headache(s) Eyes Eyes: Reports as per HPI, Denies change in vision, Reports eye discharge, Reports irritation and Denies loss of vision ENT Ears, Nose, Mouth, and Throat: Denies headache(s) Neurologic Neurologic: Denies headache(s) and Denies loss of vision Exam Const General: cooperative, no acute distress and not ill appearing Orientation: alert, awake and oriented x3 HENMT Head: normal to inspection and atraumatic Ears: hearing grossly normal bilaterally and external ears normal General nose exam: external nose normal Mouth: moist mucous membranes Eyes Visual Lopez: normal visual lopez by confrontation Alignment and Position: alignment normal and position normal Periorbital: periorbital findings normal Eyelids: eyelids normal Conjunctivae: conjunctival abnormality right conjunctival injection and discharge Cornea: corneas normal and fluorescein used Pupils: PERRL EOM: EOM intact bilaterally Resp Effort & Inspection: normal respiratory effort, able to speak in complete sentences and no respiratory distress Skin General skin exam: no rashes or lesions noted Neuro General: patient alert, patient awake, patient oriented x3, moves all extremities and no focal motor deficits Sensory Exam: no sensory deficits noted Course Vital Signs Vital signs: Vital Signs Temperature 37.2 C 10/06/23 10:40 Pulse 113 H 10/06/23 10:40 Respiratory Rate 17 10/06/23 10:40 Blood Pressure 183/113 H 10/06/23 10:40 Pulse Oximetry 97 10/06/23 10:40 Temperature 37.2 C 10/06/23 10:53 Temperature Source Temporal Artery Scan 10/06/23 10:53 Pulse 113 H 10/06/23 10:53 Respiratory Rate 17 10/06/23 10:53 Respiratory Effort Normal, Non-Labored 10/06/23 10:53 Blood Pressure 183/113 H 10/06/23 10:53 Blood Pressure Position Sitting 10/06/23 10:53 Pulse Oximetry 97 10/06/23 10:53 Oxygen Delivery Method Room Air 10/06/23 10:53 Oxygen Flow Rate 0 10/06/23 10:53 Pain Level 1 10/06/23 10:53 Medical Decision Making Significant conjunctivitis right eye, patient suspects potential chemical irritation or dirt, started using erythromycin ointment but has run out but does state that he has noted some improvement since beginning this medication that he had leftover from previous visit. Past medical contributing history of corneal abrasions and cataract replacement greater than 6 months ago. fluorescein used and no obvious corneal abrasion or other abnormality, Bobo-Pen used and pressure in the right eye was 10.1 and left eye 11.2. EOMs intact, no signs of orbital cellulitis. Will continue patient on erythromycin ointment and have patient follow-up with eye respiratory care program director or return for new or worsening symptoms. After discussion of diagnosis and plan of care patient has no further needs, questions, or concerns and states clear understanding to return to the emergency department for any worsening symptoms. This documentation was generated using [employer] system, please disregard any oddities of phrase or misspellings. 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) gets clenching of left jaw, no improvement with magnesium; manages with mindfulness Hyperlipidemia (Chronic) Cataract (Chronic) planning surgery in 04/2023 Hematuria (Acute) Umbilical hernia (Acute) Hiatal hernia (Chronic) Medical History (Updated 10/06/23 @ 11:40 by Simone Posey NP) Diverticula of colon Family history of gallbladder disease Left inguinal hernia s/p repair Recurrent inguinal hernia of right side with obstruction Anxiety Surgical History S/P cataract extraction History of arthroscopy of knee left History of inguinal hernia repair Right: 08/18/20182010 Family History Son No problems noted. 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
[2023-10-06] MEDS: Erythromycin Ophth Oint 3.5 GM TUBE OP (11:54)
== END 2023-10-06 11:57 | disposition home or self-care (01) ==
PROVIDERS: Emergency Provider Nurse Practitioner Family; PCP Family Medicine
DX: H10.31 Unspecified acute conjunctivitis, right eye (principal)
CPT/HCPCS: 99282; 99283